=== PATIENT | male | born 1960 | race Caucasian/White ===

== ENCOUNTER → 2019-02-17 | Outpatient (CLI) | payer OTHER, SELFPAY ==
[2019-02-17 18:48] LABS: AST(SGOT) 20 U/L (15-37); Alanine Aminotransfer ALT/SGPT 21 U/L (16-61); Albumin, Serum 3.6 g/dL (3.2-5.0); Alkaline Phosphatase 80 U/L (45-117); Bilirubin, Direct 0.22 mg/dL (0.00-0.30); Globulin 3.8 g/dL (2.2-4.2); PSA,Total - Annual Screen 0.51 ng/mL (0.00-4.00); Protein, Total 7.4 g/dL (6.4-8.2)
== END | disposition home or self-care (01) ==
LOC: MFPLAB 15:59
PROVIDERS: Family Provider Family Medicine; PCP Family Medicine; Referring Provider Family Medicine; Visit Provider Family Medicine
DX: E80.6 Other disorders of bilirubin metabolism (principal); Z12.5 Encounter for screening for malignant neoplasm of prostate
CPT/HCPCS: 36415; 80076; 84153; G0103

== ENCOUNTER 2019-04-01 07:57 | Day surgery (SDC) | payer OTHER, SELFPAY ==
--- NOTE | 2019-04-01 06:17 | HP.PCM_ITS ---
Problem List (1) Personal history of colonic polyps Status: Acute History of Present Illness Date of Admission: 04/01/19 The patient is a 58 year old M who has a personal history of colon polyps. His most recent colonoscopy was performed September 26, 2013. A 7 mm polyp in the as cending colon was identified at that time. It was resected and consistent with a tubular adenoma. In addition the patient has a family history with a father who had colon cancer. The patient presents via our open access program today. He otherwise enjoys good health. He denies any abdominal pain. No bright red blood per rectum or melena. Past Medical History Home Medications: Ambulatory Orders Medication Instructions Recorded Sertraline HCl 04/01/19 Review of Systems Constitutional: Denies: Anorexia HEENT: Denies: Difficulty Swallowing Cardiovascular: Denies: Chest Pain, Chest Pressure Gastrointestinal: Denies: Abdominal Pain Endocrine: Denies: Change in Body Habitus VTE Information - Inpt Only VTE Present on Admission: No - Physical Exam General: Alert, Oriented x3, Cooperative HEENT: Atraumatic Oral: Moist Mucosa Neck: Supple Lungs: Clear to auscultation Cardiovascular: Regular rate, Regular Rhythm Abdomen: Bowel Sounds Present, Soft, Non Tender Extremities: No clubbing Assessment/Plan All Active Problems Personal history of colonic polyps (Acute) I am recommending the patient is screening colonoscopy with possible biopsy or polypectomy is indicated. He is aware of the technique, benefits, risks, alternatives. He has had an opportunity to ask and have questions answered. We will proceed as noted. Wilbert Lambert M.D., F.A.C.S.
[2019-04-01 08:43] VITALS: BP 131/87; PULSE 91; RESP 16; TEMP 37.3; O2SAT 98; BMI 25.1
--- NOTE | 2019-04-01 09:37 | OP.ENDO_ITS ---
04/01/2019 Quique Ramirez [address] [place] [address] Re : Colonoscopy procedure for Paolmo Platt Dear Dr. Ramirez This procedure was performed on Monday, April 01, 2019. My impressions and recommendations are as follows: Impressions : - Non-thrombosed external hemorrhoids, non-thrombosed internal hemorrhoids and internal hemorrhoids that prolapse with straining, but require manual replacement into the anal canal (Grade III) found on digital rectal exam. - Diverticulosis in the entire examined colon. - The examination was otherwise normal. - No specimens collected. Recommendations : - Discharge patient to home. - Resume previous diet. - Continue present medications. - Repeat colonoscopy in 5 years for surveillance. My findings are described in the full procedure note, which is enclosed. If I can be of further assistance, please feel free to contact me at Doctor phone number(s): Work: . Sincerely, Wilbert Lambert MD 04/01/2019 9:36:39 AM This report has been signed electronically.
[2019-04-01 09:38] VITALS: BP 131/87; BP 93/70; PULSE 78; RESP 16; TEMP 36.2; O2SAT 97
[2019-04-01 09:40] VITALS: BP 108/86; BP 131/87; PULSE 80; RESP 16; O2SAT 98
[2019-04-01 09:46] VITALS: BP 104/83; BP 131/87; PULSE 74; RESP 16; O2SAT 99
[2019-04-01 09:47] VITALS: BP 120/68; BP 131/87; PULSE 75; RESP 16; TEMP 36.2; O2SAT 100
[2019-04-01 10:04] VITALS: BP 131/87
== END 2019-04-01 10:19 | disposition home or self-care (01) ==
LOC: EN 07:58 → AC 07:59
PROVIDERS: Family Provider Family Medicine; PCP Family Medicine; Referring Provider Family Medicine; Visit Provider Surgery
PROC: 0DJD8ZZ Inspection of Lower Intestinal Tract, Via Natural or Artificial Opening Endoscopic (ICD-10-PCS; CPT 45378; principal; 2019-04-01 08:55)
DX: Z86.010 Personal history of colon polyps (principal); K57.30 Diverticulosis of large intestine without perforation or abscess without bleeding; K64.2 Third degree hemorrhoids; K64.4 Residual hemorrhoidal skin tags
CPT/HCPCS: 45378; J7120

== ENCOUNTER → 2019-11-08 15:40 | Outpatient (CLI) | payer OTHER, SELFPAY ==
--- NOTE | 2019-11-08 15:55 | EKG12_ITS ---
Test Reason : PRE OP Blood Pressure : / mmHG Vent. Rate : 077 BPM Atrial Rate : 077 BPM P-R Int : 146 ms QRS Dur : 086 ms QT Int : 370 ms P-R-T Axes : 064 013 034 degrees QTc Int : 418 ms Normal sinus rhythm Normal ECG Confirmed by KATLYN BOLES, ABIMAEL ([id number]), greeting card editor ZOLTAN JONES ([id number]) on 11/09/2019 1:42:37 PM Referred By: Jose Good Confirmed By:ABIMAEL POTTS MD
[2019-11-08 16:29] LABS: Hematocrit 42.4 % (40-54); Hemoglobin 13.9 g/dL (13.0-16.5); Mean Corp Hgb Conc 32.8 g/dL (32-36); Mean Corpuscular Hgb 30.8 pg (27.0-32.0); Mean Corpuscular Volume 93.8 fL (80-94); Mean Platelet Vol. 9.3 fl (6.2-12.0); Platelet Count 268 K/mm3 (150-450); RBC Distribution Width CV 12.2 % (11.6-14.6); RBC Distribution Width SD 42.3 fl (35.1-43.9); Red Blood Count 4.52 M/mm3 (4.6-6.2)
[2019-11-08 17:23] LABS: Anion Gap 7 (5-15); BUN 18 mg/dL (7-18); BUN/Creat Ratio 18.3 RATIO (10-20); Chloride 106 mmol/L (98-107); Creatinine, Serum 0.98 mg/dL (0.70-1.30); EST Glomerular Filtration Rate 83 mL/min (>60); Est Glom Filt Rate - Afr Amer 101 mL/min (>60); Glucose 99 mg/dL (74-106); Potassium 4.3 mmol/L (3.5-5.1); Sodium Level 139 mmol/L (136-145)
== END ==
LOC: LAB 15:43
PROVIDERS: PCP Family Medicine; Referring Provider Physician Assistant; Visit Provider Physician Assistant
DX: Z01.818 Encounter for other preprocedural examination (principal); Z01.810 Encounter for preprocedural cardiovascular examination
CPT/HCPCS: 36415; 80048; 85027; 93005

== ENCOUNTER → 2019-11-21 15:03 | Outpatient (CLI) | payer OTHER, SELFPAY ==
--- NOTE | 2019-11-21 15:06 | VDLE_ITS ---
Reason For Study: Pain in rt lrg RIGHT GSV is normal. CFV is compressible, spontaneous, phasic, competent and demonstrates normal augmentation. FV is compressible, spontaneous, phasic, competent and demonstrates normal augmentation. POP V is compressible, spontaneous, phasic, competent and demonstrates normal augmentation. T/P Trunk is compressible. PTV is compressible. RT PerV is compressible. Procedure Exam performed in department. A preliminary report was called and/or faxed to [facility]. Interpretation Summary Deep veins of the right lower extremity are patent and compressible segmentally. There is no evidence of right lower extremity deep vein thrombosis. Valvular competence appears intact within the proximal deep venous system on the right . The right great saphenous vein appears patent and compressible segmentally. Ordering Physician: Harish Novoa Referring Physician: Quique Ramirez Performed By: Tarah Figueroa RVT
== END ==
PROVIDERS: PCP Family Medicine; Referring Provider Orthopaedic Surgery; Visit Provider Orthopaedic Surgery
DX: M79.604 Pain in right leg (principal)
CPT/HCPCS: 93971

== ENCOUNTER → 2021-06-27 | Outpatient (CLI) | payer OTHER, SELFPAY | END | disposition home or self-care (01) | PROVIDERS: PCP Family Medicine; Referring Provider Family Medicine; Visit Provider Family Medicine | DX: B34.9 Viral infection, unspecified (principal) | CPT/HCPCS: 87633; 87635; U0005; U0003 ==

== ENCOUNTER 2021-10-31 09:55 | Outpatient (CLI) | payer OTHER, SELFPAY ==
--- NOTE | 2021-10-31 09:59 | RAD_ITS ---
EXAM: XR Chest, 2 Views CLINICAL INDICATION: 61 years old, Male; COUGH TECHNIQUE: Frontal and lateral views of the chest. This report was created using [employer] report generation technology. COMPARISON: None. FINDINGS: Lungs and pleural spaces: Unremarkable. No consolidation or edema. No pneumothorax. No effusion. Heart: Unremarkable. Cardiac silhouette not enlarged. Mediastinum: Central airways and mediastinal contour are unremarkable. Bones/joints: Unremarkable. Soft tissues: Unremarkable. Vasculature: Tortuous thoracic aorta. RAD/Chest PA and Lateral IMPRESSION: No acute findings in the chest. Electronically Signed: Quique Eden MD at 7:54 EST ,
== END 2021-10-31 23:59 | disposition home or self-care (01) ==
PROVIDERS: PCP Family Medicine; Referring Provider Nurse Practitioner Family; Visit Provider Nurse Practitioner Family
DX: R05.9 Cough, unspecified (principal)
CPT/HCPCS: 71046

== ENCOUNTER 2021-11-13 11:30 | Emergency (ER) | payer OTHER, SELFPAY ==
[2021-11-13 11:31] VITALS: BP 124/94; PULSE 118; RESP 18; TEMP 35.7; O2SAT 96; BMI 25.8
--- NOTE | 2021-11-13 11:35 | RAD_ITS ---
STUDY: X-RAY CHEST REASON FOR EXAM: Male, 61 years old. Shortness of breath and cough TECHNIQUE: Single AP portable view of the chest. COMPARISON: 10/31/2021 FINDINGS: The lungs are clear and expanded. There is no demonstrated pleural abnormality. Normal size heart. Normal mediastinum and mitchel. Normal visualized pulmonary arteries. Normal visualized aortic arch and descending thoracic aorta. Normal visualized thoracic spine. Normal visualized ribs, clavicles, and shoulders. There is no demonstrated abnormality of the visualized soft tissue structures of the upper abdomen. RAD/Chest 1 View IMPRESSION: Normal x-ray examination of the chest. Electronically Signed: Duane Galicia MD at 11:48 EST ,
[2021-11-13 12:01] VITALS: PULSE 118; RESP 24; O2SAT 94; O2SAT 96
--- NOTE | 2021-11-13 12:23 | CT_ITS ---
STUDY: CTA CHEST REASON FOR EXAM: Male, 61 years old. Atypical chest pain RADIATION DOSAGE (If Supplied By Facility): CTDIvol = ( 7.98 ) mGy, DLP = ( 304.73 ) mGycm TECHNIQUE: The examination was performed with the intravenous administration of IV 100mL Isovue-370. Post-processing of the angiographic images was performed, with multiplanar reformation and 3D reconstruction. Individualized dose optimization techniques were used for this CT. COMPARISON: None. FINDINGS: Normal enhancement of the main pulmonary artery and right and left pulmonary arteries. Normal enhancement of the bilateral peripheral pulmonary arteries. There is no demonstrated pulmonary embolism. There is aneurysmal dilatation of the ascending aorta. The transverse diameter of the ascending aorta measures 43.2 mm''s. There is no demonstrated aortic dissection. Normal heart and pericardium. Normal mediastinum. Normal hilar regions. There is peribronchial thickening. The lungs are well expanded. Chronic interstitial changes in both lung oropeza without a superimposed acute pulmonary process. Normal pleura. Normal chest wall structures. There are degenerative changes of thoracic spine. There is diffuse fatty infiltration of the liver with simple cysts in the dome of the liver. CT/CTA Chest W/WO Contrast IMPRESSION: No demonstrated PE. Aneurysmal dilation of the thoracic aorta at 4.32cm. No evidence of dissection Chronic bronchitis. Fatty liver with simple renal cysts, no specific follow up recommended. Electronically Signed: Duane Galicia MD at 13:53 EST ,
--- NOTE | 2021-11-13 12:23 | EKG12_ITS ---
Test Reason : SOB Blood Pressure : / mmHG Vent. Rate : 100 BPM Atrial Rate : 100 BPM P-R Int : 144 ms QRS Dur : 084 ms QT Int : 344 ms P-R-T Axes : 070 045 046 degrees QTc Int : 443 ms Sinus rhythm with occasional Premature ventricular complexes Otherwise normal ECG Confirmed by DARIEN BOLES, BARBIE ([id number]), offline editor KEN HALEY ([id number]) on 11/14/2021 10:13:23 AM Referred By: BERNARDO Confirmed By:BARBIE LEDEZMA MD
[2021-11-13] MEDS: MethylPREDNISolone 125 MG/2 ML Vial IV (12:31)
[2021-11-13] MEDS: Ipratropium/Albuterol Sulfate 3 ML AMPUL.NEB INHALATION (12:40)
[2021-11-13 12:41] LABS: Absolute Lymphocyte Count 1.38 X10^3/uL (0.83-4.51); Basophil# 0.14 X10^3/uL; Basophil% 1.3 % (0-1); Eosinophils% 8.6 % (0-5); Hematocrit 45.5 % (40-54); Hemoglobin 15.5 g/dL (13.0-16.5); Lymphocyte # 1.38 X10^3/ul (0.83-4.51); Lymphocyte % 13.2 % (19-41); Mean Corp Hgb Conc 34.1 g/dL (32-36); Mean Corpuscular Hgb 32.2 pg (27.0-32.0); Mean Corpuscular Volume 94.6 fL (80-94); Mean Platelet Vol. 9.1 fl (6.2-12.0); Monocyte# 0.96 X10^3/uL; Monocyte% 9.2 % (0-10); NRBC Flagged by Analyzer 0 % (0-5); Neutrophil # 7.01 X10^3/uL (2.7-7.7); Neutrophil % 67.1 % (47-70); Platelet Count 315 K/mm3 (150-450); RBC Distribution Width CV 12.3 % (11.6-14.6); RBC Distribution Width SD 43.1 fl (35.1-43.9); Red Blood Count 4.81 M/mm3 (4.6-6.2); White Blood Count 10.5 K/mm3 (4.4-11.0)
[2021-11-13] MEDS: Albuterol 2.5 MG/3 ML VIAL.NEB. INHALATION (12:41)
[2021-11-13 12:57] LABS: Anion Gap 7 (5-15); BUN 12 mg/dL (7-18); Calcium,Total 9.5 mg/dL (8.5-10.1); Chloride 108 mmol/L (98-107); Creatinine, Serum 0.92 mg/dL (0.70-1.30); EST Glomerular Filtration Rate 89 mL/min (>60); Est Glom Filt Rate - Afr Amer 108 mL/min (>60); Estimated Creatinine Clearance 85.39 ml/min; Glucose 93 mg/dL (74-106); Potassium 4.3 mmol/L (3.5-5.1); Sodium Level 139 mmol/L (136-145); Troponin-I HS 7 pg/mL (3.0-78.0)
[2021-11-13 12:59] VITALS: PULSE 102; RESP 17
[2021-11-13 12:59] LABS: BNP,B-Type NATRIURETIC PEPTIDE 34.6 pg/mL (0-100)
[2021-11-13 14:00] VITALS: BP 143/74; PULSE 91; RESP 19; O2SAT 97
--- NOTE | 2021-11-13 14:57 | ED.VIS.DYS ---
HPI History of Present Illness Chief Complaint: Shortness of Breath Informant: patient Narrative Narrative: Patient presents with dyspnea. He states he has had several episodes of this since he was diagnosed with a pneumonia back in June 2021. This will be his fourth episode. Each time he is coughing and has wheezing. The other times he was bringing up more sputum but he is not really doing that now. He does have dyspnea on exertion. He has not had chest pain. No swelling of the legs. No recent travel, surgery, immobilization, personal or family history of DVT or PE. He states that when he is on steroids and an inhaler it does help and the symptoms go away but they come back. He is always been on 5 days of steroids. He does not have a history of asthma COPD or emphysema. He has never been a smoker but he grew up in a house with significant secondary exposure. He has no chemical exposures at work. Nothing specifically initiates his symptoms. The meds do make it better. He has not seen pulmonology for this. [facility] Medical History Depression Home Medications sertraline 100 mg PO DAILY 04/01/19 [History Last Taken Unknown] albuterol sulfate 2 puff INHALATION Q4H PRN PRN 11/13/21 [History Last Taken Unknown] albuterol sulfate [Ventolin HFA] 2 puff INHALATION Q4H PRN PRN #1 device 11/13/21 [Rx Last Taken Unknown] prednisone 10 mg PO DAILY #52 tab 11/13/21 [Rx Last Taken Unknown] Allergy/AdvReac Type Severity Reaction Status Date / Time cephalexin [From Keflex] Allergy Rash Verified 11/13/21 11:33 Surgical History H/O lateral meniscus repair of right knee Social History Smoking Status: Never smoker ROS ROS ED Constitutional Constitutional ED: Denies chills or fever(s) Eyes Eyes: Denies change in vision ENT ENT ED: Denies rhinorrhea or sore throat Cardiovascular Cardiovascular: Denies chest pain, palpitations or racing heartbeat Respiratory/Chest Respiratory/Chest: Reports cough, dyspnea and dyspnea on exertion; Denies sputum Gastrointestinal Gastrointestinal: Denies nausea or vomiting Genitourinary Genitourinary ED: Denies dysuria Musculoskeletal Musculoskeletal: Denies myalgias Integumentary Denies rash Neurologic Neurologic: Denies headache(s), paresthesias or weakness Psychiatric Psychiatric: Denies anxiety Endocrine Endocrinology: Denies polydipsia or polyuria Hematologic/Lymphatic Hematologic/Lymphatic: Denies easy bleeding or easy bruising Allergic/Immunologic Allergic/Immunologic ED: Denies mouth swelling, tongue swelling or urticaria EXAM Physical Exam Const Vital Signs: 11/13/21 11:31 11/13/21 12:01 11/13/21 12:59 Temperature 96.2 F L Temperature Source Temporal Pulse Rate 118 H 118 H 102 H Respiratory Rate 18 24 H 17 Respiratory Effort Normal Non-Labored Respiratory Depth Normal Respiratory Pattern Tachypnea Normal Blood Pressure 124/94 H Blood Pressure Mean 104 Pulse Ox 96 94 Oxygen Delivery Method Room Air Room Air Positive well nourished Constitutional Narrative: Patient actually looks comfortable sitting in bed. General Appearance ED: NAD HEENT Reports moist mucous membranes HEENT Narrative: No oropharyngeal swelling. atraumatic Eyes General Eye ED: Negative for pale conjunctiva or scleral icterus Neck no JVD Neck Narrative: No stridor or JVD noted. Resp normal respiratory effort Resp Narrative: Respiratory effort seems okay. However, the patient has significant expiratory wheezing. I do not hear rhonchi or rales. No pain with a deep breath. Auscultation: wheezes; Negative for rales or rhonchi Cardio regular rhythm; Negative for regular rate Cardio Narrative: Mild tachycardia Rate: tachycardic GI non-tender Palpation: soft Back/Spine no CVA tenderness and normal to inspection Extremity normal to inspection Extremity Narrative: No edema, cords, asymmetry. General Extremety ED: Negative for edema or tenderness General Extremity: Negative for edema Neuro Sensorium / Orientation: alert Psych mental status grossly normal Skin Lesions: no lesions Rashes: no rashes MDM MDM MDM Narrative Medical decision making narrative: We did do a more comprehensive work-up. This patient has had 4 episodes of significant pulmonary problems with no history of lung disease. He has been tested 3 times for Covid which are all negative. It might be that he had injury from his first pneumonia and is never fully recovered over the winter. However, he is also had persistent dyspnea, has tachycardia. He has had prior x-rays without definitive answer. X-ray done through protocol here showed no acute process. I did do further work-up including troponin and BNP that are negative. Electrolytes are essentially normal. CBC is normal. CT scan was done. Showed some hint of chronic bronchitis. There is also an aneurysm of the thoracic aorta. This was evidently known and he had a CT pending. This will need follow-up. I explained that this may need surgery in the future. Patient will be placed on steroids. I will get a spacer which she has never used. I will also refill his MDI. I recommend following up with his primary physician and he may need referral to pulmonology. Lab Data Attestation: I reviewed the patient's lab results. Labs: Laboratory Results - last 24 hr 11/13/21 11/13/21 11/13/21 12:30 12:30 12:30 WBC 10.5 RBC 4.81 Hgb 15.5 Hct 45.5 MCV 94.6 H MCH 32.2 H MCHC 34.1 RDW Std Deviation 43.1 RDW Coeff of Tressa 12.3 Plt Count 315 MPV 9.1 Immature Gran % (Auto) 0.600 Neut % (Auto) 67.1 Lymph % (Auto) 13.2 L Graves % (Auto) 9.2 Eos % (Auto) 8.6 H Baso % (Auto) 1.3 H Absolute Neuts (auto) 7.0 Absolute Lymphs (auto) 1.38 Nucleated RBC % 0 Sodium 139 Potassium 4.3 Chloride 108 H Carbon Dioxide 24.0 Anion Gap 7 BUN 12 Creatinine 0.92 Estim Creat Clear Calc 85.39 Est GFR (MDRD) Af Amer 108 Est GFR (MDRD) Non-Af 89 BUN/Creatinine Ratio 13.0 Glucose 93 Calcium 9.5 Troponin I High Sens 7 B-Natriuretic Peptide 34.6 Radiography Diagnostic Testing: Clinical Impression(s) from Imaging Studies Chest X-Ray 11/13/21 11:35 IMPRESSION: Normal x-ray examination of the chest. Electronically Signed: Duane Galicia MD at 11:48 EST , Chest CTA 11/13/21 12:23 IMPRESSION: No demonstrated PE. Aneurysmal dilation of the thoracic aorta at 4.32cm. No evidence of dissection Chronic bronchitis. Fatty liver with simple renal cysts, no specific follow up recommended. Electronically Signed: Duane Galicia MD at 13:53 EST , EKG Initial EKG: Comments: EKG done for dyspnea read by me shows sinus rhythm with overall rate of 100. There are occasional PVCs. No acute ST elevation or depression. SC interval, QRS duration and QTc are normal. Discharge Plan Triage Chief Complaint: Shortness of Breath ED Provider: Km Ham Dx/Rx/DC Orders Clinical Impression: Bronchitis, mucopurulent recurrent, Bronchospasm Instructions: ED Bronchitis with Wheezing (Adult) Prescriptions: New albuterol sulfate [Ventolin HFA] 90 mcg/actuation HFA aerosol inhaler 2 puff inhalation Q4H PRN PRN (Reason: Wheezing) Qty: 1 RF: 2 prednisone 10 mg tablet 10 mg PO DAILY Qty: 52 RF: 0 No Action sertraline 100 MG tablet 100 mg PO DAILY RF: 0 albuterol sulfate 90 mcg/actuation HFA aerosol inhaler 2 puff INHALATION Q4H PRN PRN (Reason: Shortness Of Breath Or Wheezing) RF: 0 Primary Care Provider: Quique Ramirez Referrals: Quique Ramirez MD [Primary Care Provider] - 3-5 Days Disposition Disposition: Home, Self Care
[2021-11-13 15:31] VITALS: BP 134/74; PULSE 93; RESP 18; O2SAT 97
== END 2021-11-13 15:31 | disposition home or self-care (01) ==
PROVIDERS: Emergency Provider Emergency Medicine; PCP Family Medicine; Visit Provider Emergency Medicine
DX: J42 Unspecified chronic bronchitis (principal); I71.2 Thoracic aortic aneurysm, without rupture; F32.A Depression, unspecified; Z79.899 Other long term (current) drug therapy; Z87.01 Personal history of pneumonia (recurrent); I49.3 Ventricular premature depolarization; J98.01 Acute bronchospasm
CPT/HCPCS: 71045; 71275; 80048; 83880; 84484; 85025; 93005; 94640; 96374; 99284; Q9967

== ENCOUNTER → 2023-03-26 | Outpatient (CLI) | payer OTHER, SELFPAY ==
[2023-03-26 12:38] LABS: Hematocrit 45.3 % (40-54); Hemoglobin 14.7 g/dL (13.0-16.5); Mean Corp Hgb Conc 32.5 g/dL (32-36); Mean Corpuscular Hgb 31.3 pg (27.0-32.0); Mean Corpuscular Volume 96.6 fL (80-94); Mean Platelet Vol. 10.5 fl (6.2-12.0); Platelet Count 245 K/mm3 (150-450); RBC Distribution Width CV 12.2 % (11.6-14.6); RBC Distribution Width SD 43.2 fl (35.1-43.9); Red Blood Count 4.69 M/mm3 (4.6-6.2); White Blood Count 5.5 K/mm3 (4.4-11.0)
[2023-03-26 13:04] LABS: ALB/GLOB Ratio 0.9 RATIO (0.9-2.4); AST(SGOT) 19 U/L (15-37); Alanine Aminotransfer ALT/SGPT 21 U/L (16-61); Albumin, Serum 3.3 g/dL (3.2-5.0); Alkaline Phosphatase 71 U/L (45-117); Anion Gap 4 (5-15); BUN 12 mg/dL (7-18); BUN/Creat Ratio 15.2 RATIO (10-20); Calcium,Total 9.2 mg/dL (8.5-10.1); Chloride 108 mmol/L (98-107); Creatinine, Serum 0.79 mg/dL (0.70-1.30); EST Glomerular Filtration Rate 106 mL/min (>60); Est Glom Filt Rate - Afr Amer 128 mL/min (>60); Globulin 3.8 g/dL (2.2-4.2); Glucose 82 mg/dL (74-106); Potassium 4.6 mmol/L (3.5-5.1); Protein, Total 7.1 g/dL (6.4-8.2); Sodium Level 138 mmol/L (136-145)
== END | disposition home or self-care (01) ==
LOC: MFPLAB 10:50
PROVIDERS: PCP Family Medicine; Visit Provider Family Medicine
DX: J45.30 Mild persistent asthma, uncomplicated (principal); G47.33 Obstructive sleep apnea (adult) (pediatric); F32.A Depression, unspecified
CPT/HCPCS: 36415; 80053; 84443; 85027

== ENCOUNTER → 2023-04-21 | Outpatient (CLI) | payer OTHER, SELFPAY ==
--- NOTE | 2023-04-21 18:49 | CT_ITS ---
EXAM: CT ANGIOGRAPHY CHEST, ABDOMEN AND PELVIS WITH INTRAVENOUS CONTRAST CLINICAL INDICATION: aneuryism TECHNIQUE: Helically acquired angiography images were obtained of the chest, abdomen and pelvis with intravenous contrast. This CT exam was performed using one or more of the following dose reduction techniques: automated exposure control, adjustment of the mA and/or kV according to patient size, and/or use of iterative reconstruction technique. MIP reconstructed images were created and reviewed. CONTRAST: IV 100mL Isovue-370 RADIATION DOSE: CTDIvol = 11.48 mGy, DLP = 822.55 mGy-cm. COMPARISON: chest CTA November 13, 2021 FINDINGS: VASCULATURE: AORTA: Mild atherosclerotic calcification of proximal descending thoracic aorta. Mild aortic tortuosity. Descending thoracic aorta is 2.7 cm, nonaneurysmal. Nonaneurysmal intra-abdominal aorta. Ascending aorta is 4.1 cm, mildly dilated-ectatic but nonaneurysmal. Stable. No dissection. PULMONARY ARTERIES: Unremarkable. Normal in caliber. No obvious central pulmonary embolism although this study was not performed with the pulmonary embolism protocol. GREAT VESSELS OF AORTIC ARCH: Unremarkable. Normal in caliber. No dissection. CELIAC TRUNK AND MESENTERIC ARTERIES: No acute findings. No occlusion or significant stenosis. No dissection. RENAL ARTERIES: No acute findings. No occlusion or significant stenosis. No dissection. ILIAC ARTERIES: No acute findings. No occlusion or significant stenosis. No dissection. CHEST: LUNGS AND PLEURAL SPACES: Unremarkable. No mass. No pleural effusion or thickening. No central airway obstruction. HEART: Unremarkable. Heart size is normal. No pericardial effusion. MEDIASTINUM: There is mild mediastinal and hilar adenopathy, increased from prior exam. An aortopulmonary window lymph node is slightly larger, now 1.4 cm x 1.7 cm, it was previously 0.9 cm x 1.3 cm. A right hilar lymph node is estimated to be 1.4 cm x 2.1 cm, previously 0.8 cm x 1.2 cm. A left hilar node is 1 cm x 1.4 cm, previously 0.6 cm x 0.9 cm. Esophagus is unremarkable. No hiatal hernia. THYROID: Unremarkable. No thyroid lesions. ABDOMEN: LIVER: 2 well-circumscribed hypodense nonenhancing hepatic cysts, the largest 2 cm. The right lobe of liver is 18.1 cm in length borderline hepatomegaly. GALLBLADDER AND BILE DUCTS: Almost completely contracted gallbladder, no obvious stones or inflammation. No gallbladder distention or wall edema. No intra- or extrahepatic biliary ductal dilation. PANCREAS: Unremarkable. No focal cystic or solid mass. SPLEEN: Unremarkable. Normal size without focal cystic or solid mass. ADRENALS: Unremarkable. No nodules. KIDNEYS AND URETERS: Lobulated contour of the lower pole of the left kidney small presumed cortical scars. No hydronephrosis. STOMACH AND BOWEL: Moderate fluid and mild gas in the stomach. No suspicious small bowel dilatation. Mild gas and stool in the colon, mild stool in the rectum. No focal inflammatory change. PELVIS: APPENDIX: Normal wall appendix is seen near the liver. BLADDER: Mildly thick-walled appearance of the urinary bladder is almost collapsed. REPRODUCTIVE: Unremarkable as visualized. No mass. CHEST, ABDOMEN and PELVIS: INTRAPERITONEAL SPACE: Unremarkable. No ascites or other fluid collection. No free air. BONES/JOINTS: Moderate disc space narrowing and vacuum disc and spondylosis on the right at L5-S1. Small calcification at the origin of the celiac axis, no narrowing. No suspicious lytic or blastic abnormality. SOFT TISSUES: Unremarkable. No discrete abdominal or pelvic wall hernia. LYMPH NODES: Unremarkable. No enlarged lymph nodes. CT/CTA Chst, Abd, Pel W and/or WO IMPRESSION: 1. Mildly ectatic measurement of ascending aorta. Stable. No patricia aortic aneurysm by size criteria. No aortic dissection. 2. Minimally larger mediastinal and hilar lymph nodes compared to November 23, 2021. Nonspecific finding. Please consider short-term follow-up exam and correlate with any history of neoplasm or any evidence of lymphoma or other lymphoproliferative disease. 3. Borderline hepatomegaly. Hepatic cysts. 4. Degenerative spine changes. Electronically Signed: Shayla Osborn MD at 8:32 EDT ,
== END | disposition home or self-care (01) ==
LOC: CT 18:49
PROVIDERS: PCP Family Medicine; Referring Provider Family Medicine; Visit Provider Family Medicine
DX: I71.20 Thoracic aortic aneurysm, without rupture, unspecified (principal)
CPT/HCPCS: 71275; 74174; Q9967

== ENCOUNTER → 2023-04-30 | Outpatient (CLI) | payer OTHER, SELFPAY ==
[2023-04-30 15:23] LABS: Absolute Lymphocyte Count 0.92 X10^3/uL (0.83-4.51); Absolute Neutrophil Count 4.1 X10^3/uL (2.0-7.7); Basophil# 0.13 X10^3/uL; Eosinophil# 0.57 X10^3/uL; Eosinophils% 8.7 % (0-5); Hematocrit 46.7 % (40-54); Hemoglobin 14.8 g/dL (13.0-16.5); Lymphocyte # 0.92 X10^3/ul (0.83-4.51); Mean Corp Hgb Conc 31.7 g/dL (32-36); Mean Corpuscular Hgb 30.7 pg (27.0-32.0); Mean Corpuscular Volume 96.9 fL (80-94); Mean Platelet Vol. 10.3 fl (6.2-12.0); Monocyte# 0.79 X10^3/uL; NRBC Flagged by Analyzer 0 % (0-5); Neutrophil # 4.14 X10^3/uL (2.7-7.7); Neutrophil % 62.8 % (47-70); Platelet Count 251 K/mm3 (150-450); RBC Distribution Width SD 43.1 fl (35.1-43.9); Red Blood Count 4.82 M/mm3 (4.6-6.2); White Blood Count 6.6 K/mm3 (4.4-11.0)
== END | disposition home or self-care (01) ==
LOC: MFPLAB 11:59
PROVIDERS: PCP Family Medicine; Visit Provider Family Medicine
DX: R50.9 Fever, unspecified (principal)
CPT/HCPCS: 36415; 85025

== ENCOUNTER → 2023-05-21 | Outpatient (CLI) | payer OTHER, SELFPAY ==
--- NOTE | 2023-05-21 17:00 | CT_ITS ---
INDICATION: enlarging hilar lymph nodes EXAMINATION: CT CHEST WITH CONTRAST - CT Chest W/ Contrast Injection TECHNIQUE: Helically acquired images were obtained of the chest following IV contrast. A radiation dose optimization technique was used for this scan. IV Contrast dosage and agent: COMPARISON: 11/13/2021, 04/21/2023. FINDINGS: LUNGS, PLEURA AND LARGE AIRWAYS: Hyperexpansion of the lungs consistent with COPD. No masses, consolidation, or edema. No pleural effusion or thickening. No pneumothorax. THYROID: No thyroid lesions. HEART AND PERICARDIUM: Heart size is normal. No pericardial effusion. VESSELS: Thoracic aorta is not dilated. No aortic dissection. No obvious central pulmonary embolism although this study was not performed with the pulmonary embolism protocol. MEDIASTINUM AND YIFAN: Stable appearance of several mildly prominent bilateral hilar and middle mediastinal lymph nodes, overall nonspecific in appearance. Follow-up in one year is probably adequate management. Esophagus is unremarkable. No hiatal hernia. UPPER ABDOMEN: No acute pathology. BONES: No suspicious lytic or blastic abnormality. Degenerative changes. CT/Chest WITH Contrast IMPRESSION: There are findings consistent with COPD. There is no evidence of acute chest disease. Stable mildly prominent mid mediastinal and hilar lymph nodes, overall nonspecific . Follow-up in one year suggested. Electronically Signed: Solomon Wild MD at 19:55 EDT ,
== END | disposition home or self-care (01) ==
LOC: CT 16:58
PROVIDERS: PCP Family Medicine; Referring Provider Family Medicine; Visit Provider Family Medicine
DX: R59.0 Localized enlarged lymph nodes (principal)
CPT/HCPCS: 71260; Q9967

== ENCOUNTER → 2024-03-17 | Outpatient (CLI) | payer OTHER, SELFPAY ==
[2024-03-17 12:20] LABS: PSA,Total - Annual Screen 0.49 ng/mL (0.00-4.00)
== END | disposition home or self-care (01) ==
LOC: MFPLAB 09:56
PROVIDERS: PCP Family Medicine; Visit Provider Family Medicine
DX: Z12.5 Encounter for screening for malignant neoplasm of prostate (principal)
CPT/HCPCS: 36415; 84153; G0103

== ENCOUNTER 2024-07-18 08:48 | Day surgery (SDC) | payer OTHER, SELFPAY ==
[2024-07-18] VITALS (8 sets, daily range): BP systolic 97–144; BP diastolic 76–95; PULSE 72–100; RESP 12–18; TEMP 36.3–36.9; O2SAT 94–97; BMI 25.4
== END 2024-07-18 11:35 | disposition home or self-care (01) ==
LOC: EN 08:50 → AC 08:52
PROVIDERS: PCP Family Medicine; Referring Provider Family Medicine; Visit Provider Internal Medicine Gastroenterology
PROC: 0DJD8ZZ Inspection of Lower Intestinal Tract, Via Natural or Artificial Opening Endoscopic (ICD-10-PCS; CPT 45378; principal; 2024-07-18 09:55)
DX: Z12.11 Encounter for screening for malignant neoplasm of colon (principal); K57.30 Diverticulosis of large intestine without perforation or abscess without bleeding; K63.5 Polyp of colon; Z79.51 Long term (current) use of inhaled steroids; Z86.0100 Personal history of colon polyps, unspecified; F32.A Depression, unspecified; Z79.899 Other long term (current) drug therapy; J45.909 Unspecified asthma, uncomplicated; K64.4 Residual hemorrhoidal skin tags; K64.1 Second degree hemorrhoids
CPT/HCPCS: 45380; 88305; A4216; J2405

== ENCOUNTER → 2024-11-02 | Outpatient (CLI) | payer OTHER, SELFPAY ==
--- NOTE | 2024-11-02 07:55 | CT_ITS ---
PROCEDURE: CT of the chest abdomen and pelvis. REASON FOR EXAM: Aortic enlargement. Follow-up examination. TECHNIQUE: Chest, abdomen and pelvis CT with intravenous contrast. No oral contrast. CONTRAST: 100 cc of Isovue 370. COMPARISON: Comparison is made with prior study dated May 21, 2023. FINDINGS: CT CHEST: Hardware: None. Lymph nodes: Stable mildly enlarged mediastinal lymph nodes. Mildly enlarged right hilar lymph nodes. This is essentially unchanged. Heart and Vasculature: Normal heart size. No pericardial effusion. The ascending thoracic aorta measures upper limits of normal. Stable calcified plaques of the aortic arch. The descending thoracic aorta is unremarkable. Lungs and Airways: The lungs are normally expanded and clear. Pleura: No pleural effusion. No pneumothorax. Bones: Degenerative changes of the thoracic spine. CT ABDOMEN/PELVIS: Liver: Hepatomegaly. Stable hepatic cysts. Gallbladder: Unremarkable. Spleen: Unremarkable. Pancreas: Unremarkable. Adrenals: Unremarkable. Kidneys: Cortical thinning along the lateral aspect of the right kidney. Bladder: Diffuse bladder wall thickening. Reproductive Organs: Unremarkable. Bowel: Unremarkable. Appendix: Normal. Lymph nodes: No suspicious lymph node enlargement. Vasculature: Major vascular structures are unremarkable. Peritoneum / Retroperitoneum: No ascites. No free air. Bones: Degenerative changes of the spine. CT/CTA Chst, Abd, Pel W and/or WO IMPRESSION: Essentially stable examination. One or more dose reduction techniques were used (e.g., Automated exposure contr ol, adjustment of the mA and/or kV according to patient size, use of iterative reconstruction technique). Reading Location: [facility]
== END | disposition home or self-care (01) ==
PROVIDERS: PCP Family Medicine; Referring Provider Family Medicine; Visit Provider Family Medicine
DX: R59.0 Localized enlarged lymph nodes (principal)
CPT/HCPCS: 71275; 74174; Q9967

== ENCOUNTER → 2025-06-02 | Outpatient (CLI) | payer OTHER, SELFPAY ==
--- OUTSIDE RECORDS SUMMARY | 2025-06-02 11:37 | XMS RPT_ITS | CCD ---
Author Organization [facility] Care Team Providers Care Bag Turner Name Role Phone STONEAnilEVETTE Attending Unavailable Unavailable Primary Care Provider Unavailjacob Ramirez MD, Dr. Quique Brown Primary Care Provider James BOLES, Dr. Quique Brown Referring Provider Friend Dr. Jean GARLAND Attending Provider Friend Dr. Jean GARLAND Other Provider [phone] James BOLES, Dr. Quique Brown Attending Provider [phone] Quique Ramirez Referring Unavailable Quique Ramirez Primary Care Unavailable Jean Mirza Attending Unavailable Quique Ramirez Attending Unavailable Quique Ramirez Referring Unavailable Quique Ramirez Primary Care Unavailable Quique Ramirez Attending Unavailable Quique Ramirez Primary Care Unavailable Marya Osborn Attending Unavailable Quique Ramirez Primary Care Unavailable Quique Ramirez Referring Unavailable Quique Ramirez Primary Care Unavailable Jean Mirza Consulting Unavailable Jean Mirza Attending Unavailable Allergies Allergy Classification Reported Allergen(s) Allergy Type Date of Onset Reaction(s) Facility (4 sources) Cephalexin Drug Allergy 11-13-2021 Rash [facility] (1 source) Cephalexin Drug Allergy 07-18-2024 [facility] Repository Medications Current Medications Medication Drug Class(es) Dates Sig (Normalized) Sig (Original) Budesonide-Formote rol (1 source) Corticosteroid, beta2-Adrenergic Agonist Start: 04-18-2024 Budesonide-Formot sabi (Symbicort) 160-4.5 mcg/actuation HFA aerosol inhaler Active 1 NMA INHALATION TWICE A DAY April 18, 2024 12:00am sertraline 100 mg oral tablet (4 sources) Serotonin Reuptake Inhibitor Start: 04-01-2019 take 1 tablet by mouth once daily Sertraline 100 MG tablet Active 100 mg PO DAILY April 01, 2019 12:00am Completed/Discontinued Medications Medication Drug Class(es) Dates Sig (Normalized) Sig (Original) [id number] 200 actuat albuterol 0.09 mg/actuat metered dose inhaler (8 sources) beta2-Adrenergic Agonist Start: 11-13-2021 End: 07-15-2024 Albuterol Sulfate 90 mcg/actuation HFA aerosol inhaler Discontinued 2 NMA INHALATION EVERY 4 HOURS NEEDED as needed for Shortness Of Breath Or Wheezing November 13, 2021 1:00am April 18, 2024 12:51pm Start: 11-13-2021 take 1 puff(s) by in halation every four hours as needed Albuterol Sulfate Active 2 PUFF INHALATION EVERY 4 HOURS NEEDED November 13, 2021 1:00am predniSONE 10 mg oral tablet (4 sources) Start: 11-13-2021 End: 07-15-2024 take 6 tablets by mouth once daily, then take 4 tablets by mouth once daily, then take 2 tablets by mouth once daily, then take 1 tablet by mouth once daily Prednisone 10 mg tablet Discontinued 10 mg PO DAILY 52 November 13, 2021 1:00am July 15, 2024 12:29pm 6 tablets a day for 4 days, 4 tablets a day for 4 days. 2 tablets a day for 4 days. Then 1 tablet a day for 4 days. Problems Active Problems Problem Classification Problem Date Documented Da te Episodic/Chronic Administrative/social admission (2 sources) Patient encounter status; Translations: [Encounter for pre-employment examination] 03-29-2024 Episodic Chronic obstructive pulmonary disease and bronchiectasis (4 sources) Mucopurulent chronic bronchitis; Translations: [Mucopurulent chronic bronchitis] 11-21-2021 Chronic Lymphadenitis (1 source) Localized enlarged lymph nodes; Translations: [Localized enlarged lymph nodes] Onset: 12-12-2024 Episodic Other and unspecified benign neoplasm (5 sources) History of polyp of colon; Translations: [Personal history of colonic polyps] 04-01-2019 Episodic Other upper respiratory disease (4 sources) Bronchospasm; Translations: [Acute bronchospasm] 11-21-2021 Episodic Past or Other Problems Problem Classification Problem Date Documented Da te Episodic/Chronic Other screening for suspected conditions (not mental disorders or infectious disease) (2 sources) Encounter for screening for malignant neoplasm of colon; Translations: [Encounter for screening for malignant neoplasm of prostate] Onset: 03-24-2024 Episodic Results Test Name Value Interpretation Reference Range Facility CTA Chst, Abd, Pel W and/or WOon 11-02-2024 CTA Chst, Abd, Pel W and/or WO [facility] Imaging Services [address] [place], [place] [address] CTA Chst, Abd, Pel W and/or WO MR#: [id number] Acct: [id number] Name: MARGARET PLATT Rep #: [id number] : 1960 M 64 From: Janak hobbs MD PCP: Dr. Quique Ramirez MD Status: REG CLI Study: CTA Chst, Abd, Pel W and/or WO Date of Exam: 0 11/02/24 Exam# [id number] Ordering Dr: Quique Ramirez MD PROCEDURE: CT of the chest abdomen and pelvis. REASON FOR EXAM: Aortic enlargement. Follow-up examination. TECHNIQUE: Chest, abdomen and pelvis CT with intravenous contrast. No oral contrast. CONTRAST: 100 cc of Isovue 370. COMPARISON: Comparison is made with prior study dated May 21, 2023. FINDINGS: CT CHEST: Hardware: None. Lymph nodes: Stable mildly enlarged mediastinal lymph nodes. Mildly enlarged right hilar lymph nodes. This is essentially unchanged. Heart and Vasculature: Normal heart size. No pericardial effusion. The ascending thoracic aorta measures upper limits of normal. Stable calcified plaques of the aortic arch. The descending thoracic aorta is unremarkable. Lungs and Airways: The lungs are normally expanded and clear. Pleura: No pleural effusion. No pneumothorax. Bones: Degenerative changes of the thoracic spine. CT ABDOMEN/PELVIS: Liver: Hepatomegaly. Stable hepatic cysts. Gallbladder: Unremarkable. Spleen: Unremarkable. Pancreas: Unremarkable. Adrenals: Unremarkable. Kidneys: Cortical thinning along the lateral aspect of the right kidney. Bladder: Diffuse bladder wall thickening. Reproductive Organs: Unremarkable. Bowel: Unremarkable. Appendix: Normal. Lymph nodes: No suspicious lymph node enlargement. Vasculature: Major vascular structures are unremarkable. Peritoneum / Retroperitoneum: No ascites. No free air. Bones: Degenerative changes of the spine. CT/CTA Chst, Abd, Pel W and/or WO IMPRESSION: Essentially stable examination. One or more dose reduction techniques were used (e.g., Automated exposure control, adjustment of the mA and/or kV according to patient size, use of iterative reconstruction technique). Reading Location: [id number] CC: Dr. Quique Ramirez MD Diesel Dragline Operator: Signed Normal [facility] Colonoscopy Reporton 024 Colonoscopy Report [facility] Medical Records Department [address] [place] [address] Colonoscopy Report MR#: [id number] Acct: [id number] Name: MARGARET PLATT Rep #: [id number] : 1960 63 From: Jean Mirza DO PCP: Dr. Quique Ramirez MD Status:REG [facility] Patient Name: Margaret Platt Procedure Date: 07/18/2024 10:28 AM Date of : 1960 Age: 63 Procedure: Colonoscopy Indications: High risk colon cancer surveillance: Personal history of colonic polyps Providers: Jean Mirza DO Medicines: Monitored Anesthesia Care Patient Profile: This is a 63 year old male. Refer to note in patient chart for documentation of history and physical. Last Colonoscopy: 5 years ago. Complications: No immediate complications. Procedure: Pre-Anesthesia Assessment: - Prior to the procedure, a History and Physical was performed, and patient medications and allergies were reviewed. The patient is competent. The risks and benefits of the procedure and the sedation options and risks were discussed with the patient. All questions were answered and informed consent was obtained. Patient identification and proposed procedure were verified by the physician in the pre-procedure area. Mental Status Examination: alert and oriented. Airway Examination: normal oropharyngeal airway and neck mobility. Respiratory Examination: clear to auscultation. CV Examination: normal. Prophylactic Antibiotics: The patient does not require prophylactic antibiotics. Prior Anticoagulants: The patient has taken no anticoagulant or antiplatelet agents except for NSAID medication. ASA Grade Assessment: II - A patient with mild systemic disease. After reviewing the risks and benefits, the patient was deemed in satisfactory condition to undergo the procedure. The anesthesia plan was to use monitored anesthesia care (MAC). Immediately prior to administration of medications, the patient was re-assessed for adequacy to receive sedatives. The heart rate, respiratory rate, oxygen saturations, blood pressure, adequacy of pulmonary ventilation, and response to care were monitored throughout the procedure. The physical status of the patient was re-assessed after the procedure. After I obtained informed consent, the scope was passed under direct vision. Throughout the procedure, the patient's blood pressure, pulse, and oxygen saturations were monitored continuously. The pediatric colonoscope was introduced through the anus and advanced to the cecum, identified by appendiceal orifice and ileocecal valve. The colonoscopy was performed without difficulty. The patient tolerated the procedure well. The quality of the bowel preparation was adequate. The ileocecal valve, appendiceal orifice, and rectum were photographed. Scope In: 10:34:40 AM Scope Withdrawal Time 0 hours 6 minutes 48 seconds Scope Out: 10:45:34 AM Total Procedure Duration Time 0 hours 10 minutes 54 seconds Findings: The perianal and digital rectal examinations were normal. A 5 mm polyp was found in the sigmoid colon. The polyp was sessile. The polyp was removed with a cold biopsy forceps. Resection and retrieval were complete. Verification of patient identification for the specimen was done. Estimated blood loss was minimal. A few small-mouthed diverticula were found in the sigmoid colon. Non-bleeding external and internal hemorrhoids were found during retroflexion. The hemorrhoids were Grade II (internal hemorrhoids that prolapse but reduce spontaneously). The exam was otherwise normal throughout the examined colon. Impression: - One 5 mm polyp in the sigmoid colon, removed with a cold biopsy forceps. Resected and retrieved. - Diverticulosis in the sigmoid colon. - Non-bleeding external and internal hemorrhoids. Recommendation: - Discharge patient to home. - Resume previous diet. - Continue present medications. - Await pathology results. - Repeat colonoscopy in 5 years for surveillance. Procedure Code(s): --- Professional --- 77915, Colonoscopy, flexible; with biopsy, single or multiple CPT copyright 2021 [employer]. All rights reserved. The codes documented in this report are preliminary and upon insurance claims clerk review may be revised to meet current compliance requirements. Jean Mirza DO 07/18/2024 10:49:34 AM This report has been signed electronically. Number of Addenda: 0 Note Initiated On: 07/18/2024 10:28 AM 07/18/24 1049 Date Jean Swift Signature: Date (if indicated) CC: Dr. Quique Ramirez MD; Jean Mirza DO Date Dictated: 07/18/24 1028 Date Transcribed: Diesel Dragline Operator: DANNIE Ko [facility] MR/POSTOP.Juan Luis 07-18-2024 MR/POSTOP.[facility] Medical Records Department [address] [place] [address] Anesthesia Postop Eval I 07/18/24 1057 MR#: [id number] Acct: [id number] Name: MARGARET PLATT Rep #: [id number] : 1960 63 From: Jose Ortiz PCP: Dr. Quique Ramirez MD Status:REG [facility] Y Race: C Location: [place] [address] Anesthesia: Postop Eval I Current Vital Signs Temperature: 98.5 F Pulse Rate: 76 Blood Pressure: 97/76 Respiratory Rate: 16 Pulse Ox: 96 Oxygen Delivery Method: Room Air Assessment Airway patent: Yes Spontaneous unlabored respirations: Yes Mental status: Awake and Calm nausea: No Vomiting: No Anesthesia Complication: No Fluid Hydration Crystalloid volume administer (ml): 40 Total IV fluid infused: 40 Progress Note Anesthesia document: Postop Eval 1 completed: Yes 07/18/24 105 Date Jose Sadler Signature: Date CC: Signed Normal [facility] MR/[id number] 07-18-2024 MR/POSTOPAN2 [facility] Medical Records Department [address] [place] [address] Anesthesia Postop Eval II 07/18/24 1437 MR#: [id number] Acct: [id number] Name: MARGARET PLATT Rep #: [id number] : 1960 63 From: Robert Obando MD PCP: Dr. Quique Ramirez MD Status:DEP [facility] Y Race: C Location: EN Anesthesia Postop Eval I Sum Postop Eval Completion status Anesthesia document: Postop Eval 1 completed: Yes Anesthesia Postop Eval I Summary Anesthesia Postop Eval I Summary: Anesthesia Postop Eval I: Assessment Summary Airway patent Yes 07/18/24 10:59 [email or web address] Spontaneous unlabored Yes 07/18/24 10:59 [email or web address] respirations Mental status Awake,Calm 07/18/24 10:59 [email or web address] nausea No 07/18/24 10:59 [email or web address] Vomiting No 07/18/24 10:59 [email or web address] Anesthesia Postop Eval I: Fluid Summary Crystalloid volume administer 40 07/18/24 10:59 [email or web address] (ml) Colloids volume administered ( ml) Blood Product volume administered (ml) Total IV fluid infused 40 07/18/24 10:59 [email or web address] Anesthesia Postop Eval I: Summary Notes Anesthesia Complication No 07/18/24 10:59 [email or web address] Anesthesia Complication Comment: Post-operative progress note Anesthesia: Postop Eval II Evaluation Mental status: Awake and Calm Pain Level: 0 nausea: No Vomiting: No Complications Anesthesia Complication: No 07/18/24 1438 Date Robert Obando MD Cosigner Signature: Date CC: Signed Normal [facility] Surgery Specimen Level Capo 07-18-2024 Surgery Specimen Level IV -------- Patient Age/Sex Location Account Attending Physician -------- MARGARET PLATT 63/M EN [id number] Jean Mirza DO -------- Specimen: [id number] Received: 07/18/24 Status: PAUL Nice Num: [id number] Spec Type: COLON BX Subm Dr: Jean Mirza DO HEADDMITRIY OPERATION: Colonoscopy PRE-OP DIAGNOSIS: Personal history of colonic polyps TISSUE SUBMITTED: Sigmoid polyp biopsy -------- MICROSCOPIC DIAGNOSIS Sigmoid polyp, biopsy: Tubular adenoma. SHAUNA. 07/20/2024 MICROSCOPIC DESCRIPTION Slides are reviewed. GROSS DESCRIPTION Received in fixative is one container labeled with the patient's name and designated Sigmoid polyp biopsy. The specimen consists of one irregular fragment of light kapadia soft tissue that measures 0.3 x 0.3 x 0.1 cm. The specimen is totally submitted in one cassette. 07/19/2024 TC:1 CPT:00765 -------- Patient Age/Sex Location Account Attending Physician -------- MARGARET PLATT 63/M EN [id number] Jean Mirza DO -------- Signed (signature on file) Dr. Adam Blake MD 07/20/24 1058 -------- Normal [facility] Comment on above: Performed By: #### P SUIV #### [facility] [address] [place], [address] MUMPS IGG ABon 03-29-2024 Mumps IgG Ab Positive Normal [facility] Comment on above: Order Comment: Relea se to patient->Automatic Result Comment: Resu lts suggest response to immunization or prior exposure to the virus. REFERENCE VALUE Vaccinated: Positive (>=1.1 AI) Unvaccinated: Negative (<=0.8 AI) Performed By: #### 6 049 #### [facility] , Mumps IgG Index Value 3.0 Normal [facility] Comment on above: Order Comment: Relea se to patient->Automatic Result Comment: Test Performed by: [facility] [address] Systems Architect: Ken Hicks Ph.D.; CLIA# [id number] Performed By: #### 6 049 #### [facility] , QUANTIFERON TB GOLDon 2023 Mitogen minus NIL >9.92 Normal [facility] Comment on above: Order Comment: Quant iFERON-TB Gold Plus is a qualitative indirect chemiluminescence immunoassay test for M tuberculosis infection and is intended for use in conjunction with risk assessment, radiography, and other medical and diagnostic evaluations. The QuantiFERON-TB Gold Plus result is determined by subtracting the Nil value from either TB antigen value. The Mitogen tube serves as a control for the test. The TB1-NIL tube specifically detects CD4+ lymphocyte reactivity; the TB2-NIL tube can detect both CD4+ and CD8+ lymphocyte reactivity. An overall Negative result does not completely rule out TB infection. A false-positive result in the absence of other clinical evidence of TB infection is not uncommon and may be due to infection from some nontuberculosis mycobacteria (M. kansasii, M szulgai, or M. marinum). Clinical research suggests a QuantiFERON-TB Gold Plus interpretation of Positive with TB1 minus Nil and TB2 minus Nil values <1.00 may represent a false-positive in the absence of other clinical evidence, especially in low-risk individuals. An overall indeterminate result is inconclusive and should not be viewed as low or intermediate infection. Indeterminate results can be caused by low Mitogen or high Nil values. Low mitogen results may occur due to a low lymphocyte count, reduced lymphocyte activity, inability of the patient's lymphocytes to generate IFN-gamma, or inappropriate handling of the tubes. High values for the Nil tube may occur due to heterophile antibody effects of nonspecific, circulating IFN-gamma in the patient's blood sample. When clinically indicated, indeterminate tests should be repeated on a new specimen. Testing Performed: [place] [address] Release to patient->Automatic Performed By: #### 1 188 #### [facility] , Quantiferon TB Gold Negative Normal Negative [facility] Comment on above: Order Comment: Quant iFERON-TB Gold Plus is a qualitative indirect chemiluminescence immunoassay test for M tuberculosis infection and is intended for use in conjunction with risk assessment, radiography, and other medical and diagnostic evaluations. The QuantiFERON-TB Gold Plus result is determined by subtracting the Nil value from either TB antigen value. The Mitogen tube serves as a control for the test. The TB1-NIL tube specifically detects CD4+ lymphocyte reactivity; the TB2-NIL tube can detect both CD4+ and CD8+ lymphocyte reactivity. An overall Negative result does not completely rule out TB infection. A false-positive result in the absence of other clinical evidence of TB infection is not uncommon and may be due to infection from some nontuberculosis mycobacteria (M. kansasii, M szulgai, or M. marinum). Clinical research suggests a QuantiFERON-TB Gold Plus interpretation of Positive with TB1 minus Nil and TB2 minus Nil values <1.00 may represent a false-positive in the absence of other clinical evidence, especially in low-risk individuals. An overall indeterminate result is inconclusive and should not be viewed as low or intermediate infection. Indeterminate results can be caused by low Mitogen or high Nil values. Low mitogen results may occur due to a low lymphocyte count, reduced lymphocyte activity, inability of the patient's lymphocytes to generate IFN-gamma, or inappropriate handling of the tubes. High values for the Nil tube may occur due to heterophile antibody effects of nonspecific, circulating IFN-gamma in the patient's blood sample. When clinically indicated, indeterminate tests should be repeated on a new specimen. Testing Performed: [place] [id number] Release to patient->Automatic Performed By: #### 1 188 #### [facility] , TB1 minus NIL 0.00 IU/mL Normal -0.50-0.34 [facility] Comment on above: Order Comment: Quant iFERON-TB Gold Plus is a qualitative indirect chemiluminescence immunoassay test for M tuberculosis infection and is intended for use in conjunction with risk assessment, radiography, and other medical and diagnostic evaluations. The QuantiFERON-TB Gold Plus result is determined by subtracting the Nil value from either TB antigen value. The Mitogen tube serves as a control for the test. The TB1-NIL tube specifically detects CD4+ lymphocyte reactivity; the TB2-NIL tube can detect both CD4+ and CD8+ lymphocyte reactivity. An overall Negative result does not completely rule out TB infection. A false-positive result in the absence of other clinical evidence of TB infection is not uncommon and may be due to infection from some nontuberculosis mycobacteria (M. kansasii, M szulgai, or M. marinum). Clinical research suggests a QuantiFERON-TB Gold Plus interpretation of Positive with TB1 minus Nil and TB2 minus Nil values <1.00 may represent a false-positive in the absence of other clinical evidence, especially in low-risk individuals. An overall indeterminate result is inconclusive and should not be viewed as low or intermediate infection. Indeterminate results can be caused by low Mitogen or high Nil values. Low mitogen results may occur due to a low lymphocyte count, reduced lymphocyte activity, inability of the patient's lymphocytes to generate IFN-gamma, or inappropriate handling of the tubes. High values for the Nil tube may occur due to heterophile antibody effects of nonspecific, circulating IFN-gamma in the patient's blood sample. When clinically indicated, indeterminate tests should be repeated on a new specimen. Testing Performed: [address] [address] Release to patient->Automatic Performed By: #### 1 [id number] #### [facility] , TB2 minus NIL 0.00 IU/mL Normal -0.50-0.34 [facility] Comment on above: Order Comment: Quant iFERON-TB Gold Plus is a qualitative indirect chemiluminescence immunoassay test for M tuberculosis infection and is intended for use in conjunction with risk assessment, radiography, and other medical and diagnostic evaluations. The QuantiFERON-TB Gold Plus result is determined by subtracting the Nil value from either TB antigen value. The Mitogen tube serves as a control for the test. The TB1-NIL tube specifically detects CD4+ lymphocyte reactivity; the TB2-NIL tube can detect both CD4+ and CD8+ lymphocyte reactivity. An overall Negative result does not completely rule out TB infection. A false-positive result in the absence of other clinical evidence of TB infection is not uncommon and may be due to infection from some nontuberculosis mycobacteria (M. kansasii, M szulgai, or M. marinum). Clinical research suggests a QuantiFERON-TB Gold Plus interpretation of Positive with TB1 minus Nil and TB2 minus Nil values <1.00 may represent a false-positive in the absence of other clinical evidence, especially in low-risk individuals. An overall indeterminate result is inconclusive and should not be viewed as low or intermediate infection. Indeterminate results can be caused by low Mitogen or high Nil values. Low mitogen results may occur due to a low lymphocyte count, reduced lymphocyte activity, inability of the patient's lymphocytes to generate IFN-gamma, or inappropriate handling of the tubes. High values for the Nil tube may occur due to heterophile antibody effects of nonspecific, circulating IFN-gamma in the patient's blood sample. When clinically indicated, indeterminate tests should be repeated on a new specimen. Testing Performed: [address] [address] Release to patient->Automatic Performed By: #### 1 188 #### [facility] , RUBELLA IGG ABon 03-29-2024 Rubella IgG Ab Positive Normal [facility] Comment on above: Order Comment: Relea se to patient->Automatic Result Comment: Resu lts suggest response to immunization or prior exposure to the virus. REFERENCE VALUE Vaccinated: Positive (>=1.0 AI) Unvaccinated: Negative (<=0.7 AI) Performed By: #### 9 [id number] #### [facility] , Rubella IgG Index 5.5 Normal [facility] Comment on above: Order Comment: Relea se to patient->Automatic Result Comment: Test Performed by: [facility] [place] [address] Systems Architect: Ken Hicks Ph.D.; CLIA# [id number] Performed By: #### 9 [id number] #### [facility] , RUBEOLA ANTIBODY IGGon 03-29 Measles (Rubeola) Ab, IgG, S Positive Normal [facility] Comment on above: Order Comment: Relea se to patient->Automatic Result Comment: Resu lts suggest response to immunization or prior exposure to the virus. REFERENCE VALUE Vaccinated: Positive (>=1.1 AI) Unvaccinated: Negative (<=0.8 AI) Performed By: #### 5 [id number] #### [facility] , Measles IgG Antibody Index 6.3 Normal [facility] Comment on above: Order Comment: Relea se to patient->Automatic Result Comment: Test Performed by: [facility] [place] [address] Systems Architect: Ken Hicks Ph.D.; CLIA# [id number] Performed By: #### 5 [id number] #### [facility] , PSA,Total - Annual Screenon 03-17-2024 PSA,TOT SCREEN 0.49 ng/mL Normal 0.00-4.00 [facility] Comment on above: Result Comment: This test was performed using the TPSA assay method for the Flexuspine system. Values obtained with different assay methods cannot be used interchangably. When changing PSA assays in the course of monitoring a patient, additional sequential testing should be carried out to confirm baseline values. Performed By: #### L [phone] #### [facility] [place], [address] Absolute lymphocyte countOrd ered By: Quique Ramirez on 04-30-2023 Lymphocytes Auto (Unsp spec) [#/Vol] 0.92 10*3/uL 0.83-4.51 [facility] Basophil percentageOrdered B y: Quique Ramirez on 04-30-2023 Basophils/100 WBC (Bld) 2.0 % 0-1 [facility] Eosinophils/100 WBC (Bld) 8.7 % 0-5 [facility] Neutrophils (Bld) [#/Vol] 4.1 10*3/uL 2.0-7.7 [facility] Neutrophils/100 WBC (Bld) 62.8 % 47-70 [facility] WBC (Bld) [#/Vol] 6.6 10*3/uL 4.4-11.0 [facility] Blood erythrocytes count (nu mber/volume)Ordered By: Quique Ramirez on 04-30-2023 RBC (Bld) [#/Vol] 4.82 10*6/uL 4.6-6.2 [facility] Blood hemoglobin measurement (mass/volume)Ordered By: Quique Ramirez on 04-30-2023 Hemoglobin (Bld) [Mass/Vol] 14.8 g/dL 13.0-16.5 [facility] Blood lymphocytes/100 leukoc ytesOrdered By: Quique Ramirez on 04-30-2023 Lymphocytes/100 WBC (Bld) 14.0 % 19-41 [facility] Blood monocytes/100 leukocyt esOrdered By: Quique Ramirez on 04-30-2023 Monocytes/100 WBC (Bld) 12.0 % 0-10 [facility] Blood platelet mean volumeOr dered By: Quique Ramirez on 04-30-2023 Platelet mean volume (Bld) [Entitic vol] 10.3 fL 6.2-12.0 [facility] Determination of erythrocyte mean corpuscular volume (MCV)Ordered By: Quique Ramirez on 04-30-2023 MCV (RBC) [Entitic vol] 96.9 fL 80-94 [facility] Hematocrit Auto (Bld) [Volum e fraction]Ordered By: Quique Ramirez on 04-30-2023 Hematocrit (Bld) [Volume fraction] 46.7 % 40-54 [facility] - Hematology and Cell countsOrdered By: Quique Ramirez on 04-30-2023 Erythrocyte distribution width (RBC) [Entitic vol] 43.1 fL 35.1-43.9 [facility] Erythrocyte distribution width (RBC) [Ratio] 12.0 % 11.6-14.6 [facility] Immature granulocytes/100 WBC (Bld) 0.500 % 0.0-0.9 [facility] Comment on above: IG% - Immature Granu locytes (promyelocytes, myelocytes and metamyelocytes) > 1% indicates that a LEFT SHIFT is Present. MCH (RBC) [Entitic mass] 30.7 pg 27.0-32.0 [facility] Nucleated RBC/100 WBC (Bld) [Ratio] 0 % 0-5 [facility] MCHC Auto (RBC) [Mass/Vol]Or dered By: Quique Ramirez on 04-30-2023 MCHC (RBC) [Mass/Vol] 31.7 g/dL 32-36 [facility] Platelets bldOrdered By: Candido Ramirez on 04-30-2023 Platelets (Bld) [#/Vol] 251 10*3/uL 150-450 [facility] Basophil percentageOrdered B y: Quique Ramirez on 03-26-2023 Bilirubin [Mass/Vol] 1.40 mg/dL 0.20-1.00 [facility] Comment on above: For patients on eltr ombopag therapy, use of Dimension Harriman TBIL is not recommended. Chloride [Moles/Vol] 108 mmol/L 98-107 [facility] Glucose [Mass/Vol] 82 mg/dL 74-106 [facility] Potassium [Moles/Vol] 4.6 mmol/L 3.5-5.1 [facility] Protein [Mass/Vol] 7.1 g/dL 6.4-8.2 [facility] Sodium [Moles/Vol] 138 mmol/L 136-145 [facility] WBC (Bld) [#/Vol] 5.5 10*3/uL 4.4-11.0 [facility] Blood erythrocytes count (nu mber/volume)Ordered By: Quique Ramirez on 03-26-2023 RBC (Bld) [#/Vol] 4.69 10*6/uL 4.6-6.2 [facility] Blood hemoglobin measurement (mass/volume)Ordered By: Quique Ramirez on 03-26-2023 Hemoglobin (Bld) [Mass/Vol] 14.7 g/dL 13.0-16.5 [facility] Blood platelet mean volumeOr dered By: Quiuqe Ramirez on 03-26-2023 Platelet mean volume (Bld) [Entitic vol] 10.5 fL 6.2-12.0 [facility] Determination of erythrocyte mean corpuscular volume (MCV)Ordered By: Quique Ramirez on 03-26-2023 MCV (RBC) [Entitic vol] 96.6 fL 80-94 [facility] Hematocrit Auto (Bld) [Volum e fraction]Ordered By: Quique Ramirez on 03-26-2023 Hematocrit (Bld) [Volume fraction] 45.3 % 40-54 [facility] - Chemistry and C hemistry - challengeOrdered By: Quique Ramirez on 03-26-2023 ALP [Catalytic activity/Vol] 71 U/L 45-117 [facility] ALT [Catalytic activity/Vol] 21 U/L 16-61 [facility] CO2 [Moles/Vol] 26.0 mmol/L 21.0-32.0 [facility] Globulin (S) [Mass/Vol] 3.8 g/dL 2.2-4.2 [facility] Urea nitrogen/Creatinine [Mass ratio] 15.2 mg/mg 10-20 [facility] - Hematology and Cell countsOrdered By: Quique Ramirez on 03-26-2023 Erythrocyte distribution width (RBC) [Entitic vol] 43.2 fL 35.1-43.9 [facility] Erythrocyte distribution width (RBC) [Ratio] 12.2 % 11.6-14.6 [facility] MCH (RBC) [Entitic mass] 31.3 pg 27.0-32.0 [facility] MCHC Auto (RBC) [Mass/Vol]Or dered By: Quique Ramirez on 03-26-2023 MCHC (RBC) [Mass/Vol] 32.5 g/dL 32-36 [facility] No Panel InformationOrdered By: Quique Ramirez on 03-26-2023 Estimated GFR (MDRD) Amer 128 mL/min >60 [facility] Comment on above: GFR Calc Estimated GFR (MDRD) Non-Af Amer 106 mL/min >60 [facility] Comment on above: Non- GFR Calc Thyroid Stimulating Hormone (TSH) 3.10 uIU/mL 0.358-3.74 [facility] Platelets bldOrdered By: Candido Ramirez on 03-26-2023 Platelets (Bld) [#/Vol] 245 10*3/uL 150-450 [facility] Serum or plasma albumin rhett urement (mass/volume)Ordered By: Quique Ramirez on 03-26-2023 Albumin [Mass/Vol] 3.3 g/dL 3.2-5.0 [facility] Serum or plasma albumin/glob ulin mass ratioOrdered By: Quique Ramirez on 03-26-2023 Albumin/Globulin [Mass ratio] 0.9 {ratio} 0.9-2.4 [facility] Serum or plasma calcium rhett urement (mass/volume)Ordered By: Quique Ramirez on 03-26-2023 Calcium [Mass/Vol] 9.2 mg/dL 8.5-10.1 [facility] Serum or plasma creatinine m easurement (mass/volume)Ordered By: Quique Ramirez on 03-26-2023 Creatinine [Mass/Vol] 0.79 mg/dL 0.70-1.30 [facility] Comment on above: The validity of the calculated GFR & GFRAA in patients over 70 years has not been determined. Clinical correlation is essential. Serum or plasma urea nitroge n measurement (mass/volume)Ordered By: Quique Ramirez on 03-26-2023 Urea nitrogen [Mass/Vol] 12 mg/dL 7-18 [facility] Thin prep Papanicolaou smear with manual screeningOrdered By: Quique Ramirez on 03-26-2023 Thin prep Papanicolaou smear with manual screening 19 U/L 15-37 [facility] Thin prep Papanicolaou smear with manual screening 4 5-15 [facility] CNPNon 12-28-2020 [facility] Telephone (SPPRAD) MARGARET PLATT ( ) 1960 M Date Time Provider Department 12/28/20 ESTEPHANIA MERCHANT SPPRAD During your visit today, we recorded the following information about you: Estephania Garcia 12/28/2020 4:19 PM Signed Recall colonoscopy (2nd call). Left a message for pt to call [phone] to schedule or call office at [phone] for questions. Allergies As of Date: 12/28/2020 Noted Allergy Reaction AMOXICILLIN 02/26/2006 4 - Hives KEFLEX (CEPHALEXIN) 02/26/2006 7 - Swelling Date Reviewed: 09/20/2019 Reviewed by: Melanie Carson Ma - Fully Assessed Reason for Visit: recall colonoscopy [Other] Prescriptions as of 12/28/2020 Sig: SERTRALINE 100 MG TABLET Take 100 mg by mouth once koby* Problem List As Of Date 12/28/2020 Noted Resolved HYPOTHYROIDISM NOS [E03.9] 02/26/2006 ESOPHAGEAL REFLUX [K21.9] 02/26/2006 Encounter Status:Closed by ESTEPHANIA MERCHANT on 02/15/21 [facility] 12-13-2020 [facility] Telephone (SPPRAD) MARGARET PLATT ( ) 1960 M Date Time Provider Department 12/13/20 ESTEPHANIA MERCHANT SPPCHARLES During your visit today, we recorded the following information about you: Estephania Garcia 12/13/2020 1:14 PM Signed Recall colonoscopy (1st call). Left a message for pt to call [phone] to schedule or call office at [phone] for questions. Allergies As of Date: 12/13/2020 Noted Allergy Reaction AMOXICILLIN 02/26/2006 4 - Hives KEFLEX (CEPHALEXIN) 02/26/2006 7 - Swelling Date Reviewed: 09/20/2019 Reviewed by: Melanie Carson Ma - Fully Assessed Reason for Visit: recall colonoscopy [Other] Prescriptions as of 12/13/2020 Sig: SERTRALINE 100 MG TABLET Take 100 mg by mouth once koby* Problem List As Of Date 12/13/2020 Noted Resolved HYPOTHYROIDISM NOS [E03.9] 02/26/2006 ESOPHAGEAL REFLUX [K21.9] 02/26/2006 Encounter Status:Closed by ESTEPHANIA MERCHANT on 02/15/21 [facility] Vital Signs Date Time Vital Sign Value Performing Clinician Faci lity 07-18-2024 11:05-0500 Body temperature 97.3 [degF] Dr. Quique Ramirez MD Work Phone: [facility] 07-18-2024 11:05-0500 Diastolic blood pressure 85 mm[Hg] Dr. Quique Ramirez MD Work Phone: [facility] 07-18-2024 11:05-0500 Heart rate 80 /min Dr. Quique Ramirez MD Work Phone: [facility] 07-18-2024 11:05-0500 Respiratory rate 18 /min Dr. Quique Ramirez MD Work Phone: [facility] 07-18-2024 11:05-0500 SaO2% (BldA) [Mass fraction] 97 % Dr. Quique Ramirez MD Work Phone: [facility] 07-18-2024 11:05-0500 Systolic blood pressure 115 mm[Hg] Dr. Quique Ramirez MD Work Phone: [facility] 07-18-2024 09:23-0500 Body height 175.[address] Quique Ramirez MD Work Phone: [facility] 07-18-2024 09:23-0500 Body mass index (BMI) [Ratio] 25.4 kg/m2 Dr. Quique Ramirez MD Work Phone: [facility] 07-18-2024 09:23-0500 Body weight 78.[address] Quique Ramirez MD Work Phone: [facility] Encounters Encounter Date Encounter Type Care Provider Facility Start: 11-02-2024 End: 11-02-[address] Quique Ramirez MD Work Phone: [facility] Work Phone: Start: 11-02-2024 End: 11-02-[address] Quique Ramirez MD -Cat Scan, [facility] Work Phone: Start: 11-02-2024 End: 11-02-2024 ambulatory Quique Ramirez Facility:[facility] Start: 07-18-2024 Non-patient / Non-visit Jean Gibbs nd, DO -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 Work Phone: Start: 04-30-2023 End: 04-30-2023 ambulatory [facility] Work Phone: Start: 04-30-2023 End: 04-30-2023 Patient encounter procedure [facility] Start: 04-21-2023 End: 04-21-2023 ambulatory [facility] Work Phone: Start: 04-21-2023 End: 04-21-2023 [facility] Work Phone: Start: 03-26-2023 End: 03-26-2023 Patient encounter procedure [facility] Procedures Date Procedure Procedure Detail Performing Clinician Start: 11-02-2024 CT of thorax, abdome n and pelvis with contrast Dr. Quique Ramirez MD Work Phone: Start: 05-21-2023 CT of thorax with contrast Start: 04-21-2023 CT of thorax, abdome n and pelvis with contrast Plan of Treatment Date Care Activity Detail Author Start: 07-18-2024 Colonoscopy w/biopsy single/multiple COLONOSCOPY AND BIOPSY [facility] Start: 07-18-2024 Patient discharge [facility] Start: 05-08-2024 FLU (#1) FLU (#1) [facility] Start: 05-08-2023 COVID-19 (2022-10 4 season) COVID-19 ( season) [facility] Start: 1977 MenB (1 of 2 - MenB 2-Dose Series Bexsero) MenB (1 of 2 - MenB 2-Dose Series Bexsero) [facility] Start: 1974 Varicella (1 of 2 - 13+ 2-dose series) Varicella (1 of 2 - 13+ 2-dose series) [facility] Start: 1968 Tetanus Diphtheria a nd Pertussis Vaccines (1 - Tdap) Tetanus Diphtheria and Pertussis Vaccines (1 - Tdap) [facility] Start: 1962 MMR (1 of 1 - Standa rd series) MMR (1 of 1 - Standard series) [facility] End: 03-29-2024 Mumps IgG Ab [facility] Comment on above: For lab collect this frequency defaults to the next routine lab draw time. Routine times: 0600; 1100; 1400; 1900; 2200 for 1 Occurrences starting 03/29/2024 until 03/29/2024 Patient referral [facility] Work Phone: End: 03-29-2024 Quantiferon TB Gold [facility] Comment on above: For lab collect this frequency defaults to the next routine lab draw time. Routine times: 0600; 1100; 1400; 1900; 2200 for 1 Occurrences starting 03/29/2024 until 03/29/2024 End: 03-29-2024 Rubella IgG Ab [facility] Comment on above: For lab collect this frequency defaults to the next routine lab draw time. Routine times: 0600; 1100; 1400; 1900; 2200 for 1 Occurrences starting 03/29/2024 until 03/29/2024 End: 03-29-2024 Rubeola antibody IgG [facility] Work Phone: Comment on above: For lab collect this frequency defaults to the next routine lab draw time. Routine times: 0600; 1100; 1400; 1900; 2200 for 1 Occurrences starting 03/29/2024 until 03/29/2024 Payers Date Payer Category Payer Unknown [employer] [id number] 2024-Present [phone] [facility] [place] [address] [id number] 2024 Self-pay [id number] 2024 Unknown [id number] 1960 Unknown [id number] Unknown [employer] [id number] Unknown [id number] Unknown [id number] Unknown [id number] Unknown [id number] Unknown [id number] Unknown [id number] Social History Date Type Detail Facility Start: 11-13-2021 Tobacco smoking stat [facility] Unknown if ever smoked [facility] Start: 1960 Sex Assigned At Male [facility] Start: 1960 Sex assigned at Not on file [facility] Gender identity Not on file [facility] Start: 07-15-2024 [facility] ([facility] Start: 11-15-2024 Sex Male (finding) [facility] Goals Date Patient Goal Desired Activity /State Mental Status Date Assessment Result Facility 07-18-2024 Cognitive function Voice/Name [facility] Work Phone: Radiology Diagnostic study note 11-02-2024 Note Date & Type Note Facility 11-02-2024 Radiology Diagnostic study note [facility] Imaging Services [address] [place], [place] [address] CTA Chst, Abd, Pel W and/or WO MR#: [id number] Acct: [id number] Name: MARGARET PLATT Rep #: [id number] : 1960 M 64 From: Valerio Rodriguez MD PCP: Dr. Quique Ramirez MD Status: RE G CLI Study:CTA Chst, Abd, Pel W and/or WO Date of Exam: 11/02/24 Exam# [id number] Ordering Dr: Quique Ramirez MD PROCEDURE: CT of the chest abdomen and pelvis. REASON FOR EXAM: Aortic enlargement. Follow-up examination. TECHNIQUE: Chest, abdomen and pelvis CT with intravenous contrast. No oral contrast. CONTRAST: 100 cc of Isovue 370. COMPARISON: Comparison is made with prior study dated May 21, 2023. FINDINGS: CT CHEST: Hardware: None. Lymph nodes: Stable mildly enlarged mediastinal lymph nodes. Mildly enlarged right hilar lymph nodes. This is essentially unchanged. Heart and Vasculature: Normal heart size. No pericardial effusion. The ascendingthoracic aorta measures upper limits of normal. Stable calcified plaques of the aortic arch. The descending thoracic aorta is unremarkable. Lungs and Airways: The lungs are normally expanded and clear. Pleura: No pleural effusion. No pneumothorax. Bones: Degenerative changes of the thoracic spine. CT ABDOMEN/PELVIS: Liver: Hepatomegaly. Stable hepatic cysts. Gallbladder: Unremarkable. Spleen: Unremarkable. Pancreas: Unremarkable. Adrenals: Unremarkable. Kidneys: Cortical thinning along the lateral aspect of the right kidney. Bladder: Diffuse bladder wall thickening. Reproductive Organs: Unremarkable. Bowel: Unremarkable. Appendix: Normal. Lymph nodes: No suspicious lymph node enlargement. Vasculature: Major vascular structures are unremarkable. Peritoneum / Retroperitoneum: No ascites. No free air. Bones: Degenerative changes of the spine. CT/CTA Chst, Abd, Pel W and/or WO IMPRESSION: Essentially stable examination. One or more dose reduction techniques were used (e.g., Automated exposure control, adjustment of the mA and/or kV according to patient size, use of iterative reconstruction technique). Reading Location: [facility] CC: Dr. 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 [facility] Evaluation note 07-18-2024 Note Date & Type Note Facility 07-18-2024 Evaluation note Diagnosis Onset Date Resolution Personal history of colonic polyps acute July 18, 2 024 8:48am [facility] Work Phone: Clinical Note 07-18-2024 Note Date & Type Note Facility 07-18-2024 Note [facility] Medical Records Department [address] [place] [address] History Physical Exam 07/18/24 0939 MR#: [id number] Acct: [id number] Name: MARGARET PLATT Rep #: [id number] : 1960 63 From: [facility] Friend PCP: Dr. Quique Ramirez MD Status:[facility] Location: [place] [address] HPI - General General Date of Admission: 07/18/24 Date of Service: 07/18/24 Chief Complaint: Personal history of polyps HPI Narrative MARGARET PLATT, is a 63 M who presents today for screening colonoscopy. He had a colonoscopy back in 2013 and 2018. Both it was time he had adenomatous polyps were removed. Currently at this time he is not having abdominal pain, chest pain or shortness of breath. Only medicine he takes on a daily basis is sertraline and inhaler. He is not having any bowel issues at this time. [facility] Medical History Alcohol use Restless legs Gastric reflux History of hiatal hernia CPAP (continuous positive airway pressure) dependence Asthma Family history of colon cancer in father Depression Home Medications ???Medication ???Instructions ???Recorded ???Last Taken ???Type sertraline 100 mg tablet 100 mg PO DAILY 04/01/19 Unknown History budesonide-formoterol HFA 160 1 puff inhalation BID 04/18/24 Unknown History mcg-4.5 mcg/actuation aerosol inhaler (Symbicort) Allergy/AdvReac Type Severity Reaction Status Date / Time cephalexin (From Keflex) Allergy Rash Verified 07/18/24 09:21 Family History Father Colon cancer, Onset Age: 60 at 62yrs Surgical History Hx of colonoscopy H/O lateral meniscus repair of right knee Social History household members: none number of children: 1 current occupational status: employed 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 Smoking Status: Never smoker alcohol intake: current alcohol intake frequency: holidays/special occasions only substance use type: does not use ROS Review of Systems ROS Unobtainable: other Constitutional Constitutional: Denies fatigue, fever(s), poor appetite, weight gain or weight loss ENT HEENT: Denies mouth lesions Cardiovascular Cardiovascular: Denies abdominal bloating, abdominal edema or abdominal pain Respiratory/Chest Respiratory/Chest: Denies change in mental status, change in phlegm color, chest congestion or chest tightness Gastrointestinal Gastrointestinal: Denies belching, bloating, change in bowel habits, change in stool character, chewing difficulty, coffee ground emesis, constipation, cramping, diarrhea, dyspepsia, dysphagia, early satiety, excessive flatus, fecal incontinence, heartburn, hematemesis, hematochezia, hemorrhoids, loose stools, melena, nausea, odynophagia, rectal bleeding, tenesmus, vomiting or weight changes Genitourinary Genitourinary: Denies abdominal discomfort, burning urination or itching Musculoskeletal Musculoskeletal: Reports as per HPI; Denies muscle weakness or myalgias Integumentary Integumentary: Denies jaundice Neurologic Neurologic: Denies lack of coordination or weakness Psychiatric Psychiatric: Denies confusion, depression, memory loss, mood swings, paranoia or suicidal ideation Endocrine Endocrinology: Denies systems reviewed and no addt'l complaints, except as documented Hematologic/Lymphatic Hematologic/Lymphatic: Denies anemia, easy bleeding, easy bruising or lymphadenopathy Allergic/Immunologic Allergic/Immunologic: Denies systems reviewed and no addt'l complaints, except as documented Vital Signs Vital Signs Vital Signs: 07/18/24 09:23 07/18/24 09:23 07/18/24 09:36 Temperature 98.1 F 98.1 F Temperature Source Temporal Pulse Rate 100 100 Respiratory Rate 18 18 Respiratory Pattern Normal Blood Pressure 144/95 H 144/95 H Blood Pressure Mean 111 Blood Pressure Source Monitor Blood Pressure Position Sitting Blood Pressure Location Right Arm Pulse Ox 96 96 Oxygen Delivery Method Room Air Weight Weight: 172 lb 6.424 oz Body Mass Index (BMI) 25.4 Physical Exam Const alert General Appearance: cooperative Orientation / Consciousness: oriented to person HEENT hearing grossly normal bilaterally Head and Scalp: normal to inspection Face and Sinus: face symmetric Nose: external nose normal Mouth: oral and palatal mucosa normal Eyes conjunctivae normal General Eye: normal appearance of both eyes Neck full ROM General: normal visual inspection Lymph Lymphatic: no lymphadenopathy noted Chest inspection of chest normal and palpation of chest normal Chest: symmetrical chest wall rise Resp normal respiratory effort Effort (more content not included)... [facility] Evaluation note Note Date & Type Note Facility Evaluation note No assessment information availa ble [facility] Work Phone: Evaluation note Note Date & Type Note Facility Evaluation note Diagnosis Pre-employment health screening examination- Primary Health examination of defined subpopulation documented in this encounter [facility] Reason for referral (narrative) Note Date & Type Note Facility Reason for referral (narrative) No reason for referral information available [facility] Work Phone: Summary Purpose Family History No Family History Records Found Relationship Condition Age at Onset Recorded Date/T abraham father Malignant neoplasm of colon 61 Advance Directives No Advanced Directives Records Found Advance Directive Response Recorded Date/ Time Living Will No November 13, 2021 1:01pm 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 of Physical Medicine Teacher No November 13 1:01pm Advance Directive Response Recorded Date/ Time Living Will No July 15 12:30pm Power of Physical Medicine Teacher No July 15, 2024 12:30pm Chief Complaint and Reason for Visit Chief Complaint ANEURYSM Chief Complaint ANEURYSM ENLARGED HILAR LYMPH NODES Chief Complaint Admit Date hilar lymphadenopathy, aortic enlargemen t November 02, 2024 7:53am Reason for Visit Admit Date Personal history of colonic polyps Novem 2023 8:48am Additional Source Comments (unrecognized sect ion and content) No Status Records FoundNo Status Records FoundNo Status Records Found INFORMATION SOURCE (unrecogn ized section and content) DATE CREATED AUTHOR 02/17/2021 [facility] DATE CREATED AUTHOR AUTHOR'S ORGANIZ ATION 04/04/2024 [facility] DATE CREATED AUTHOR AUTHOR'S ORGANIZ ATION 12/13/2024 [facility] Teams (unrecognized sec tion and content) Team Status: Active Member Role Status Dates Dr. Quique Ramirez MD Family Provider Active Dr. Quique Ramirez MD Primary Care Provider Active Team Status: Inactive Member Role Status Dates Dr. Quique Ramirez MD Primary Care Provider, Attend [facility] Provider Active Team Status: Inactive Member Role Status Dates Dr. Quique Ramirez MD Primary Care Pr ovider, Attending Provider, Referring Provider Active Team Status: Active Member Role Status Dates Dr. Quique Ramirez MD Primary Care Provider Active Team Status: Inactive Member Role Status Dates Dr. Quique Ramirez MD Primary Care Provider Active Start: July 18, 2024 End: July 18, 2024 Dr. Quique Ramirez MD Referring Provider Active Start: July 18, 2024 End: July 18, 2024 Dr. Jean Mirza DO Attending Provider Active Start: July 18, 2024 End: July 18, 2024 Team Status: Active Member Role Status Dates Dr. Quique Ramirez MD Primary Care Provider Active Start: July 18, 2024 Dr. Quique Ramirez MD Referring Provider Active Start: July 18, 2024 Dr. Jean Mirza DO Attending Provider Active Start: July 18, 2024 Dr. Jean Mirza DO Other Provider Active St art: July 18, 2024 Team Status: Inactive Member Role Status Dates Dr. Quique Ramirez MD Primary Care Provider Active Start: November 02, 2024 End: November 02, 2024 Dr. Quique Ramirez MD Attending Provider Active Start: November 02, 2024 End: November 02, 2024 Dr. Quique Ramirez MD Referring Provider Active Start: November 02, 2024 End: November 02, 2024 Goals (unrecognized section and content) Goals may be documented in a n alternate sectionGoals may be documented in an alternate sectionGoals may be documented in an alternate section FOR RECORDS PERTAINING TO PATIENTS WHO ARE OR HAVE BEEN ENROLLED IN A CHEMICAL DEPENDENCY/SUBSTANCEABUSE PROGRAM, SOME INFORMATION MAY BE OMITTED. This clinical summary was aggregated from multiple sources. Caution should be exercised in using it in the provision of clinical care. This summary normalizes information from multiple sources, and as a consequence, information in this document may materially change the coding, format and clinical context of patient data. In addition, data may be omitted in some cases. CLINICAL DECISIONS SHOULD BE BASED ON THE PRIMARY CLINICAL RECORDS. [facility] [employer] [facility]. provides no warranty or guarantee of the accuracy or completeness of information in this document.
--- OUTSIDE RECORDS SUMMARY | 2025-06-02 11:37 | XMS RPT_ITS | CCD ---
Author Organization [facility] Care Team Providers Care Engineering Specialist Technician Name Role Phone STONEAnilEVETTE Attending Unavailable Unavailable Primary Care Provider Unavailjacob Ramirez MD, Dr. Quique Brown Primary Care Provider James BOLES, Dr. Quique Brown Referring Provider [phone] Jean GARLAND Attending Provider Friend Dr. Jean GARLAND Other Provider James BOLES, Dr. Quique Brown Attending Provider Quique Ramirez Referring Unavailable Quique Ramirez Primary [...] (4 sources) Cephalexin Drug Allergy 11-13-2021 Rash [facility] (1 source) Cephalexin Drug Allergy 07-18-2024 [facility] Repository Medications Current Medications Medication Drug Class(es) [...] Drug Class(es) Dates Sig (Normalized) Sig (Original) [id number] 200 actuat albuterol 0.09 mg/actuat metered dose [...] CTA Chst, Abd, Pel W and/or WO [facility] Imaging Services [address] [place], [place] [address] CTA Chst, Abd, Pel W and/or WO MR#: [id number] Acct: [id number] Name: MARGARET PLATT Rep #: [id number] : 1960 M 64 From: Janak hobbs MD PCP: Dr. Quique Ramirez MD Status: REG CLI Study: CTA Chst, Abd, Pel W and/or WO Date of Exam: 0 11/02/24 Exam# [id number] Ordering Dr: Quique Ramirez MD PROCEDURE: CT [...] use of iterative reconstruction technique). Reading Location: [id number] CC: Dr. Quique Ramirez MD Public Transit Trolley Driver: Signed Normal [facility] Colonoscopy Reporton 024 Colonoscopy Report [facility] Medical Records Department [address] [place] [address] Colonoscopy Report MR#: [id number] Acct: [id number] Name: MARGARET PLATT Rep #: [id number] : 1960 63 From: Jaen Mirza DO PCP: Dr. Quique Ramirez MD Status:REG [facility] Patient Name: Margaret Platt Procedure Date: 07/18/2024 [...] for surveillance. Procedure Code(s): --- Professional --- 10348, Colonoscopy, flexible; with biopsy, single or multiple CPT copyright 2021 [employer]. All rights reserved. The codes documented in this report are preliminary and upon terminal operator review may be revised to meet current compliance requirements. Jean Mirza DO 07/18/2024 10:49:34 AM This report has been signed electronically. Number of Addenda: 0 Note Initiated On: 07/18/2024 10:28 AM 07/18/24 1049 Date Jean Swift Signature: Date (if indicated) CC: Dr. Quique Ramirez MD; Jean Mirza DO Date Dictated: 07/18/24 1028 Date Transcribed: Public Transit Trolley Driver: DANNIE Ko [facility] MR/POSTOP.Juan Luis 07-18-2024 MR/POSTOP.[facility] Medical Records Department [address] [place] [address] Anesthesia Postop Eval I 07/18/24 1057 MR#: [id number] Acct: [id number] Name: MARGARET PLATT Rep #: [id number] : 1960 63 From: Jose Ortiz PCP: Dr. Quique Ramirez MD Status:REG [facility] Y Race: C Location: [place] [address] Anesthesia: Postop Eval I Current Vital Signs [...] Jose Sadler Signature: Date CC: Signed Normal [facility] MR/[id number] 07-18-2024 MR/POSTOPAN2 [facility] Medical Records Department [address] [place] [address] Anesthesia Postop Eval II 07/18/24 1437 MR#: [id number] Acct: [id number] Name: MARGARET PLATT Rep #: [id number] : 1960 63 From: Robert Obando MD PCP: Dr. Quique Ramirez MD Status:DEP [facility] Y Race: C Location: EN Anesthesia Postop [...] MD Cosigner Signature: Date CC: Signed Normal [facility] Surgery Specimen Level Capo 07-18-2024 Surgery Specimen Level IV -------- Patient Age/Sex Location Account Attending Physician -------- MARGARET PLATT 63/M EN [id number] Jean Mirza DO -------- Specimen: [id number] Received: 07/18/24 Status: PAUL Nice Num: [id number] Spec Type: COLON BX Subm Dr: Jean [...] totally submitted in one cassette. 07/19/2024 TC:1 CPT:11803 -------- Patient Age/Sex Location Account Attending Physician -------- MARGARET PLATT 63/M EN [id number] Jean Mirza DO -------- Signed (signature on file) Dr. Adam Blake MD 07/20/24 1058 -------- Normal [facility] Comment on above: Performed By: #### P SUIV #### [facility] [address] [place], [address] MUMPS IGG ABon 03-29-2024 Mumps IgG Ab Positive Normal [facility] Comment on above: Order Comment: Relea se to patient->Automatic Result Comment: Resu lts suggest response to immunization or prior exposure to the virus. REFERENCE VALUE Vaccinated: Positive (>=1.1 AI) Unvaccinated: Negative (<=0.8 AI) Performed By: #### 6 049 #### [facility] , Mumps IgG Index Value 3.[address] [facility] Comment on above: Order Comment: Relea se to patient->Automatic Result Comment: Test Performed by: [facility] [place] [address] Drywall Stripper Helper: Ken Hicks Ph.D.; CLIA# [id number] Performed By: #### 6 049 #### [facility] , QUANTIFERON TB GOLDon 2023 Mitogen minus NIL >9.92 Normal [facility] Comment on above: Order Comment: Quant [...] repeated on a new specimen. Testing Performed: [place] [address] Release to patient->Automatic Performed By: #### 1 188 #### [facility] , Quantiferon TB Gold Negative Normal Negative [facility] Comment on above: Order Comment: Quant [...] repeated on a new specimen. Testing Performed: [place] [id number] Release to patient->Automatic Performed By: #### 1 188 #### [facility] , TB1 minus NIL 0.00 IU/mL Normal -0.50-0.34 [facility] Comment on above: Order Comment: Quant [...] repeated on a new specimen. Testing Performed: [address] [address] Release to patient->Automatic Performed By: #### 1 188 #### [facility] , TB2 minus NIL 0.00 IU/mL Normal -0.50-0.34 [facility] Comment on above: Order Comment: Quant [...] repeated on a new specimen. Testing Performed: [address] [address] Release to patient->Automatic Performed By: #### 1 188 #### [facility] , RUBELLA IGG ABon 03-29-2024 Rubella IgG Ab Positive Normal [facility] Comment on above: Order Comment: Relea se to patient->Automatic Result Comment: Resu lts suggest response to immunization or prior exposure to the virus. REFERENCE VALUE Vaccinated: Positive (>=1.0 AI) Unvaccinated: Negative (<=0.7 AI) Performed By: #### 9 460 #### [facility] , Rubella IgG Index 5.5 Normal [facility] Comment on above: Order Comment: Relea se to patient->Automatic Result Comment: Test Performed by: [facility] [place] [address] Drywall Stripper Helper: Ken Hicks Ph.D.; CLIA# [id number] Performed By: #### 9 460 #### [facility] , RUBEOLA ANTIBODY IGGon 03-29 Measles (Rubeola) Ab, IgG, S Positive Normal [facility] Comment on above: Order Comment: Relea se to patient->Automatic Result Comment: Resu lts suggest response to immunization or prior exposure to the virus. REFERENCE VALUE Vaccinated: Positive (>=1.1 AI) Unvaccinated: Negative (<=0.8 AI) Performed By: #### 5 941 #### [facility] , Measles IgG Antibody Index 6.3 Normal [facility] Comment on above: Order Comment: Relea se to patient->Automatic Result Comment: Test Performed by: [facility] [place] [address] Drywall Stripper Helper: Ken Hicks Ph.D.; CLIA# [id number] Performed By: #### 5 941 #### [facility] , PSA,Total - Annual Screenon 03-17-2024 PSA,TOT SCREEN 0.49 ng/mL Normal 0.00-4.00 [facility] Comment on above: Result Comment: This test was performed using the TPSA assay method for the [employer] system. Values obtained with different assay methods cannot be used interchangably. When changing PSA assays in the course of monitoring a patient, additional sequential testing should be carried out to confirm baseline values. Performed By: #### L [phone] #### [facility] [place], [address] Absolute lymphocyte countOrd ered By: Quique Ramirez on 04-30-2023 Lymphocytes Auto (Unsp spec) [#/Vol] 0.92 10*3/uL 0.83-4.51 [facility] Basophil percentageOrdered B y: Quique Ramirez on 04-30-2023 Basophils/100 WBC (Bld) 2.0 % 0-1 [facility] Eosinophils/100 WBC (Bld) 8.7 % 0-5 [facility] Neutrophils (Bld) [#/Vol] 4.1 10*3/uL 2.0-7.7 [facility] Neutrophils/100 WBC (Bld) 62.8 % 47-70 [facility] WBC (Bld) [#/Vol] 6.6 10*3/uL 4.4-11.0 [facility] Blood erythrocytes count (nu mber/volume)Ordered By: Quique Ramirez on 04-30-2023 RBC (Bld) [#/Vol] 4.82 10*6/uL 4.6-6.2 [facility] Blood hemoglobin measurement (mass/volume)Ordered By: Quique Ramirez on 04-30-2023 Hemoglobin (Bld) [Mass/Vol] 14.8 g/dL 13.0-16.5 [facility] Blood lymphocytes/100 leukoc ytesOrdered By: Quique Ramirez on 04-30-2023 Lymphocytes/100 WBC (Bld) 14.0 % 19-41 [facility] Blood monocytes/100 leukocyt esOrdered By: Quique Ramirez on 04-30-2023 Monocytes/100 WBC (Bld) 12.0 % 0-10 [facility] Blood platelet mean volumeOr dered By: Quique Ramirez on 04-30-2023 Platelet mean volume (Bld) [Entitic vol] 10.3 fL 6.2-12.0 [facility] Determination of erythrocyte mean corpuscular volume (MCV)Ordered By: Quique Ramirez on 04-30-2023 MCV (RBC) [Entitic vol] 96.9 fL 80-94 [facility] Hematocrit Auto (Bld) [Volum e fraction]Ordered By: Quique Ramirez on 04-30-2023 Hematocrit (Bld) [Volume fraction] 46.7 % 40-54 [facility] - Hematology and Cell countsOrdered By: Quique Ramirez on 04-30-2023 Erythrocyte distribution width (RBC) [Entitic vol] 43.1 fL 35.1-43.9 [facility] Erythrocyte distribution width (RBC) [Ratio] 12.0 % 11.6-14.6 [facility] Immature granulocytes/100 WBC (Bld) 0.500 % 0.0-0.9 [facility] Comment on above: IG% - Immature Granu locytes (promyelocytes, myelocytes and metamyelocytes) > 1% indicates that a LEFT SHIFT is Present. MCH (RBC) [Entitic mass] 30.7 pg 27.0-32.0 [facility] Nucleated RBC/100 WBC (Bld) [Ratio] 0 % 0-5 [facility] MCHC Auto (RBC) [Mass/Vol]Or dered By: Quique Ramirez on 04-30-2023 MCHC (RBC) [Mass/Vol] 31.7 g/dL 32-36 [facility] Platelets bldOrdered By: Candido Ramirez on 04-30-2023 Platelets (Bld) [#/Vol] 251 10*3/uL 150-450 [facility] Basophil percentageOrdered B y: Quique Ramirez on 03-26-2023 Bilirubin [Mass/Vol] 1.40 mg/dL 0.20-1.00 [facility] Comment on above: For patients on eltr ombopag therapy, use of Dimension [place] TBIL is not recommended. Chloride [Moles/Vol] 108 mmol/L 98-107 [facility] Glucose [Mass/Vol] 82 mg/dL 74-106 [facility] Potassium [Moles/Vol] 4.6 mmol/L 3.5-5.1 [facility] Protein [Mass/Vol] 7.1 g/dL 6.4-8.2 [facility] Sodium [Moles/Vol] 138 mmol/L 136-145 [facility] WBC (Bld) [#/Vol] 5.5 10*3/uL 4.4-11.0 [facility] Blood erythrocytes count (nu mber/volume)Ordered By: Quique Ramirez on 03-26-2023 RBC (Bld) [#/Vol] 4.69 10*6/uL 4.6-6.2 [facility] Blood hemoglobin measurement (mass/volume)Ordered By: Quique Ramirez on 03-26-2023 Hemoglobin (Bld) [Mass/Vol] 14.7 g/dL 13.0-16.5 [facility] Blood platelet mean volumeOr dered By: Quique Ramirez on 03-26-2023 Platelet mean volume (Bld) [Entitic vol] 10.5 fL 6.2-12.0 [facility] Determination of erythrocyte mean corpuscular volume (MCV)Ordered By: Quique Ramirez on 03-26-2023 MCV (RBC) [Entitic vol] 96.6 fL 80-94 [facility] Hematocrit Auto (Bld) [Volum e fraction]Ordered By: Quique Ramirez on 03-26-2023 Hematocrit (Bld) [Volume fraction] 45.3 % 40-54 [facility] - Chemistry and C hemistry - challengeOrdered By: Quique Ramirez on 03-26-2023 ALP [Catalytic activity/Vol] 71 U/L 45-117 [facility] ALT [Catalytic activity/Vol] 21 U/L 16-61 [facility] CO2 [Moles/Vol] 26.0 mmol/L 21.0-32.0 [facility] Globulin (S) [Mass/Vol] 3.8 g/dL 2.2-4.2 [facility] Urea nitrogen/Creatinine [Mass ratio] 15.2 mg/mg 10-20 [facility] - Hematology and Cell countsOrdered By: Quique Ramirez on 03-26-2023 Erythrocyte distribution width (RBC) [Entitic vol] 43.2 fL 35.1-43.9 [facility] Erythrocyte distribution width (RBC) [Ratio] 12.2 % 11.6-14.6 [facility] MCH (RBC) [Entitic mass] 31.3 pg 27.0-32.0 [facility] MCHC Auto (RBC) [Mass/Vol]Or dered By: Quique Ramirez on 03-26-2023 MCHC (RBC) [Mass/Vol] 32.5 g/dL 32-36 [facility] No Panel InformationOrdered By: Quique Ramirez on 03-26-2023 Estimated GFR (MDRD) Amer 128 mL/min >60 [facility] Comment on above: GFR Calc Estimated GFR (MDRD) Non-Af Amer 106 mL/min >60 [facility] Comment on above: Non- GFR Calc Thyroid Stimulating Hormone (TSH) 3.10 uIU/mL 0.358-3.74 [facility] Platelets bldOrdered By: Candido Ramirez on 03-26-2023 Platelets (Bld) [#/Vol] 245 10*3/uL 150-450 [facility] Serum or plasma albumin rhett urement (mass/volume)Ordered By: Quique Ramirez on 03-26-2023 Albumin [Mass/Vol] 3.3 g/dL 3.2-5.0 [facility] Serum or plasma albumin/glob ulin mass ratioOrdered By: Quique Ramirez on 03-26-2023 Albumin/Globulin [Mass ratio] 0.9 {ratio} 0.9-2.4 [facility] Serum or plasma calcium rhett urement (mass/volume)Ordered By: Quique Ramirez on 03-26-2023 Calcium [Mass/Vol] 9.2 mg/dL 8.5-10.1 [facility] Serum or plasma creatinine m easurement (mass/volume)Ordered By: Quique Ramirez on 03-26-2023 Creatinine [Mass/Vol] 0.79 mg/dL 0.70-1.30 [facility] Comment on above: The validity of the calculated GFR & GFRAA in patients over 70 years has not been determined. Clinical correlation is essential. Serum or plasma urea nitroge n measurement (mass/volume)Ordered By: Quique Ramirez on 03-26-2023 Urea nitrogen [Mass/Vol] 12 mg/dL 7-18 [facility] Thin prep Papanicolaou smear with manual screeningOrdered By: Quique Ramirez on 03-26-2023 Thin prep Papanicolaou smear with manual screening 19 U/L 15-37 [facility] Thin prep Papanicolaou smear with manual screening 4 5-15 [facility] CNPNon 12-28-2020 [facility] Telephone (SPPRAD) MARGARET PLATT ( ) 1960 M Date Time Provider Department 12/28/20 ESTEPHANIA MERCHANT SPPRAD During your visit today, we recorded the following information about you: Estephania Garcia 12/28/2020 4:19 PM Signed Recall colonoscopy (2nd call). Left a message for pt to call [phone] to schedule or call office at [phone] for questions. Allergies As of Date: 12/28/2020 [...] Encounter Status:Closed by ESTEPHANIA MERCHANT on 02/15/21 [facility] 12-13-2020 [facility] Telephone (SPPRAD) MARGARET PLATT ( ) 1960 M Date Time Provider Department 12/13/20 ESTEPHANIA MERCHANT SPPCHARLES During your visit today, we recorded the following information about you: Estephania Garcia 12/13/2020 1:14 PM Signed Recall colonoscopy (1st call). Left a message for pt to call [phone] to schedule or call office at [phone] for questions. Allergies As of Date: 12/13/2020 [...] Encounter Status:Closed by ESTEPHANIA MERCHANT on 02/15/21 [facility] Vital Signs Date Time Vital Sign Value Performing Clinician Faci lity 07-18-2024 11:05-0500 Body temperature 97.3 [degF] Dr. Quique Ramirez MD Work Phone: [facility] 07-18-2024 11:05-0500 Diastolic blood pressure 85 mm[Hg] Dr. Quique Ramirez MD Work Phone: [facility] 07-18-2024 11:05-0500 Heart rate 80 /min Dr. Quique Ramirez MD Work Phone: [facility] 07-18-2024 11:05-0500 Respiratory rate 18 /min Dr. Quique Ramirez MD Work Phone: [facility] 07-18-2024 11:05-0500 SaO2% (BldA) [Mass fraction] 97 % Dr. Quique Ramirez MD Work Phone: [facility] 07-18-2024 11:05-0500 Systolic blood pressure 115 mm[Hg] Dr. Quique Ramirez MD Work Phone: [facility] 07-18-2024 09:23-0500 Body height 175.[address] Quique Ramirez MD Work Phone: [facility] 07-18-2024 09:23-0500 Body mass index (BMI) [Ratio] 25.4 kg/m2 Dr. Quique Ramirez MD Work Phone: [facility] 07-18-2024 09:23-0500 Body weight 78.[address] Quique Ramirez MD Work Phone: [facility] Encounters Encounter Date Encounter Type Care Provider Facility Start: 11-02-2024 End: 11-02-[address] Quique Ramirez MD Work Phone: [facility] Work Phone: Start: 11-02-2024 End: 11-02-[address] Quique Ramirez MD -Cat Scan, [facility] Work Phone: Start: 11-02-2024 End: 11-02-2024 ambulatory Quique Ramirez Facility:[facility] Start: 07-18-2024 Non-patient / Non-visit Jean Gibbs nd, DO -[facility] Start: 07-18-2024 End: 07-18-2024 Admission to same day surgery center Jean Mirza DO -Endoscopy Work Phone: Start: 07-18-2024 End: 07-18-2024 ambulatory Quique Ramirez Facility:[facility] Start: 04-18-2024 ambulatory [facility] Facility:B [facility] Start: 03-29-2024 End: 03-29-2024 ambulatory EVETTE GONZALEZ [facility] Start: 03-29-2024 End: 03-29-2024 Subsequent hospital visit by physician Evette Gonzalez [employer] SUPERVISOR-GLOVE BOARDER Work Phone: [facility] Comment on above: Pre-employment healt h screening examination (Primary Dx) Start: 03-17-2024 End: 03-17-2024 ambulatory Quique Ramirez Facility:[facility] Start: 05-21-2023 End: 05-21-2023 ambulatory [facility] Work Phone: Start: 05-21-2023 End: 05-21-2023 [facility] Work Phone: Start: 04-30-2023 End: 04-30-2023 ambulatory [facility] Work Phone: Start: 04-30-2023 End: 04-30-2023 Patient encounter procedure [facility] Start: 04-21-2023 End: 04-21-2023 ambulatory [facility] Work Phone: Start: 04-21-2023 End: 04-21-2023 [facility] Work Phone: Start: 03-26-2023 End: 03-26-2023 Patient encounter procedure [facility] Procedures Date Procedure Procedure Detail Performing Clinician Start: 11-02-2024 CT of thorax, abdome n and pelvis with contrast Dr. Quique Ramirez MD Work Phone: Start: 05-21-2023 CT of thorax with contrast Start: 04-21-2023 CT of thorax, abdome n and pelvis with contrast Plan of Treatment Date Care Activity Detail Author Start: 07-18-2024 Colonoscopy w/biopsy single/multiple COLONOSCOPY AND BIOPSY [facility] Start: 07-18-2024 Patient discharge [facility] Start: 05-08-2024 FLU (#1) FLU (#1) [facility] Start: 05-08-2023 COVID-19 (2022-10 4 season) COVID-19 ( season) [facility] Start: 1977 MenB (1 of 2 - MenB 2-Dose Series Bexsero) MenB (1 of 2 - MenB 2-Dose Series Bexsero) [facility] Start: 1974 Varicella (1 of 2 - 13+ 2-dose series) Varicella (1 of 2 - 13+ 2-dose series) [facility] Start: 1968 Tetanus Diphtheria a nd Pertussis Vaccines (1 - Tdap) Tetanus Diphtheria and Pertussis Vaccines (1 - Tdap) [facility] Start: 1962 MMR (1 of 1 - Standa rd series) MMR (1 of 1 - Standard series) [facility] End: 03-29-2024 Mumps IgG Ab [facility] Comment on above: For lab collect this frequency defaults to the next routine lab draw time. Routine times: 0600; 1100; 1400; 1900; 2200 for 1 Occurrences starting 03/29/2024 until 03/29/2024 Patient referral [facility] Work Phone: End: 03-29-2024 Quantiferon TB Gold [facility] Comment on above: For lab collect this frequency defaults to the next routine lab draw time. Routine times: 0600; 1100; 1400; 1900; 2200 for 1 Occurrences starting 03/29/2024 until 03/29/2024 End: 03-29-2024 Rubella IgG Ab [facility] Comment on above: For lab collect this frequency defaults to the next routine lab draw time. Routine times: 0600; 1100; 1400; 1900; 2200 for 1 Occurrences starting 03/29/2024 until 03/29/2024 End: 03-29-2024 Rubeola antibody IgG [facility] Work Phone: Comment on above: For lab collect this frequency defaults to the next routine lab draw time. Routine times: 0600; 1100; 1400; 1900; 2200 for 1 Occurrences starting 03/29/2024 until 03/29/2024 Payers Date Payer Category Payer Unknown [employer] [id number] 2024-Present [phone] [facility] [place] [address] [place] [address] [id number] 2024 Self-pay [id number] 2024 Unknown [id number] 1960 Unknown [id number] Unknown [employer] [id number] Unknown [id number] Unknown [id number] Unknown [id number] Unknown [id number] Unknown [id number] Unknown [id number] Social History Date Type Detail Facility Start: 11-13-2021 Tobacco smoking stat [facility] Unknown if ever smoked [facility] Start: 1960 Sex Assigned At Male [facility] Start: 1960 Sex assigned at Not on file [facility] Gender identity Not on file [facility] Start: 07-15-2024 [facility] Start: 11-15-2024 Sex Male (finding) [facility] Goals Date Patient Goal Desired Activity /State Mental Status Date Assessment Result Facility 07-18-2024 Cognitive function Voice/Name [facility] Work Phone: Radiology Diagnostic study note 11-02-2024 Note Date & Type Note Facility 11-02-2024 Radiology Diagnostic study note [facility] Imaging Services [address] [place], [place] [address] CTA Chst, Abd, Pel W and/or WO MR#: [id number] Acct: [id number] Name: MARGARET PLATT Rep #: [id number] : 1960 M 64 From: Valerio Rodriguez MD PCP: Dr. Quique Ramirez MD Status: RE G CLI Study:CTA Chst, Abd, Pel W and/or WO Date of Exam: 11/02/24 Exam# [id number] Ordering Dr: Quique Ramirez MD PROCEDURE: CT [...] SHAAN CC: Dr. Quique Ramirez MD ~ Public Transit Trolley Driver: Signed [facility] Evaluation note 07-18-2024 Note Date & Type Note Facility 07-18-2024 Evaluation note Diagnosis Onset Date Resolution Personal history of colonic polyps acute July 18, 2 024 8:48am [facility] Work Phone: Clinical Note 07-18-2024 Note Date & Type Note Facility 07-18-2024 Note [facility] Medical Records Department [address] [place] [address] History Physical Exam 07/18/24 0939 MR#: [id number] Acct: [id number] Name: MARGARET PLATT Rep #: [id number] : 1960 63 From: [facility] Friend PCP: Dr. Quique Ramirez MD Status:[facility] Location: [place] [address] HPI - General General Date of Admission: [...] having any bowel issues at this time. [facility] Medical History Alcohol use Restless legs Gastric [...] respiratory effort Effort (more content not included)... [facility] Evaluation note Note Date & Type Note Facility Evaluation note No assessment information availa ble [facility] Work Phone: Evaluation note Note Date & Type Note Facility Evaluation note Diagnosis Pre-employment health screening examination- Primary Health examination of defined subpopulation documented in this encounter [facility] Reason for referral (narrative) Note Date & Type Note Facility Reason for referral (narrative) No reason for referral information available [facility] Work Phone: Summary Purpose Family History No Family History Records Found Relationship Condition Age at Onset Recorded Date/T abraham father Malignant neoplasm of colon 61 Advance Directives No Advanced Directives Records Found Advance Directive Response Recorded Date/ Time Living Will No November 13, 2021 1:01pm Power of Salesperson [employer] No November 13 1:01pm Advance Directive Response Recorded Date/ Time Living Will No July 15 12:30pm Power of Salesperson [employer] No July 15, 2024 12:30pm Chief Complaint [...] section and content) DATE CREATED AUTHOR 02/17/2021 [facility] DATE CREATED AUTHOR AUTHOR'S ORGANIZ ATION 04/04/2024 [facility] DATE CREATED AUTHOR AUTHOR'S ORGANIZ ATION 12/13/2024 [facility] Care Teams (unrecognized sec tion and content) Team Status: Active Member Role Status Dates Dr. Quique Ramirez MD Family Provider Active Dr. Quique Ramirez MD Primary Care Provider Active Team Status: Inactive Member Role Status Dates Dr. Quique Ramirez MD Primary Care Provider, Attend [facility] Provider Active Team Status: Inactive Member [...] BE BASED ON THE PRIMARY CLINICAL RECORDS. [facility]. provides no warranty or guarantee of the accuracy or completeness of information in this document.
[2025-06-02 16:22] LABS: Hematocrit 43.3 % (40-54); Hemoglobin 14.5 g/dL (13.0-16.5); Immature Granulocytes Count 0.030 X10^3/uL (0.0-0.0); Mean Corp Hgb Conc 33.5 g/dL (32-36); Mean Corpuscular Volume 91.5 fL (80-94); Mean Platelet Vol. 10.2 fl (6.2-12.0); NRBC Flagged by Analyzer 0 % (0-5); Platelet Count 221 K/mm3 (150-450); RBC Distribution Width CV 12.8 % (11.6-14.6); RBC Distribution Width SD 43.6 fl (35.1-43.9); Red Blood Count 4.73 M/mm3 (4.6-6.2); White Blood Count 5.5 K/mm3 (4.4-11.0)
[2025-06-02 16:45] LABS: AST(SGOT) 20 U/L (<=37); Alanine Aminotransfer ALT/SGPT 13 U/L (<=46); Albumin, Serum 4.3 g/dL (3.4-4.8); Alkaline Phosphatase 85 U/L (40-129); Anion Gap 12 (5-15); BUN 13 mg/dL (4-19); BUN/Creat Ratio 16.6 RATIO (10-20); Calcium,Total 9.6 mg/dL (7.6-11.0); Carbon Dioxide 21.5 mmol/L (21.0-32.0); Chloride 101 mmol/L (98-108); Globulin 3.1 g/dL (2.2-4.2); Glucose 74 mg/dL (70-99); Potassium 4.3 mmol/L (3.3-5.1); Vitamin B12 176 pg/mL (180-914); Vitamin D,25 Hydroxy 11.3 ng/mL (30-100)
== END | disposition home or self-care (01) ==
LOC: MFPLAB 11:14
PROVIDERS: PCP Family Medicine; Referring Provider Family Medicine; Visit Provider Family Medicine
DX: R53.83 Other fatigue (principal)
CPT/HCPCS: 36415; 80053; 82306; 82607; 84439; 84443; 85025

== ENCOUNTER → 2025-07-21 | Outpatient (CLI) | payer OTHER, SELFPAY ==
[2025-07-21 10:50] LABS: AST(SGOT) 17 U/L (<=37); Alanine Aminotransfer ALT/SGPT 11 U/L (<=46); Albumin, Serum 4.2 g/dL (3.4-4.8); Alkaline Phosphatase 83 U/L (40-129); Anion Gap 11 (5-15); BUN 13 mg/dL (4-19); BUN/Creat Ratio 14.4 RATIO (10-20); Calcium,Total 9.7 mg/dL (7.6-11.0); Carbon Dioxide 24.2 mmol/L (21.0-32.0); Chloride 104 mmol/L (98-108); Globulin 3.3 g/dL (2.2-4.2); Glucose 84 mg/dL (70-99); PSA,Total - Annual Screen 1.33 ng/mL (0.02-4.00); Potassium 4.2 mmol/L (3.3-5.1); Vitamin B12 347 pg/mL (180-914); Vitamin D,25 Hydroxy 58.5 ng/mL (30-100)
== END | disposition home or self-care (01) ==
LOC: MFPLAB 08:28
PROVIDERS: PCP Family Medicine; Visit Provider Family Medicine
DX: Z12.5 Encounter for screening for malignant neoplasm of prostate (principal); E55.9 Vitamin D deficiency, unspecified
CPT/HCPCS: 36415; 80053; 82306; 82607; 84153; G0103